=== PATIENT | female | born 1935 | race Caucasian/White ===

== ENCOUNTER 2016-12-08 17:23 | Emergency (ER) | payer OTHER ==
[~2016-12-08] VITALS: Ht 157.5 cm; Wt 51.9 kg
[2016-12-08 17:30] VITALS: TEMP 36.7; Ht 157.5 cm; Wt 51.9 kg
[2016-12-08] MEDS ORDERED: SODIUM CHLORIDE 0.9% 1000ML 1,000 ML IV STA (19:48)
[2016-12-08] MEDS ORDERED: OPTIRAY 320 IV PRN (20:00)
[2016-12-08 20:26] LABS: BASO % 0.3 %; BASO ABS # 0.02 K/uL (0-0.2); COMPLETE YES; EOS % 1.6 %; HEMATOCRIT 38.4 % (37-47); IG% 0.3 %; MEAN CELL VOLUME 89.7 fL (80-100); MEAN CORPUSCULAR HEMOGLOBIN 30.8 pg (25-34); MEAN CORPUSCULAR HGB CONC 34.4 g/dl (32-36); MEAN PLATELET VOLUME 10.1 fL (7.4-10.4); MONO % 10.6 %; NEUT % 71.2 %; PLATELET COUNT 382 K/uL (130-400); RED BLOOD COUNT 4.28 M/uL (4.2-5.4); WHITE BLOOD COUNT 6.86 K/uL (4.8-10.8)
[2016-12-08 20:48] LABS: BUN/CREATININE RATIO 19.3 (10-20); CALCIUM 9.7 mg/dl (8.5-10.1); CREATININE 0.85 mg/dl (0.60-1.20); POTASSIUM 3.8 mmol/L (3.5-5.1)
[2016-12-08 21:19] LABS: MANUAL MICROSCOPIC REQUIRED? YES; REVIEW REQ? NO; URINE COLOR AMBER
[2016-12-08 21:20] LABS: SULFASALICYLIC ACID POS (NEG); URINE APPEARANCE SLIGHTLY CLOUDY (CLEAR); URINE SPECIFIC GRAVITY 1.019 (1.000-1.030)
--- NOTE | 2016-12-08 21:21 | DIAGNOSTIC IMAGING REPORT ---
ABDOMINAL ULTRASOUND, RIGHT UPPER QUADRANT HISTORY: Painless jaundice. COMPARISON: None. FINDINGS: Liver morphology is normal. Moderate dilatation of the common bile duct is noted. The common bile duct measures 1 cm in caliber. The distal common bile duct is obscured. There is a large amount of sludge within the gallbladder. There is mild gallbladder wall thickening. No shadowing gallstones are identified. The pancreas is obscured by overlying bowel gas. There is no right hydronephrosis. IMPRESSION: 1. Mild to moderate dilatation of the common bile duct. No common bile duct calculi identified although distal common bile duct is obscured. 2. Obscured pancreas due to overlying bowel gas. 3. Large amount of sludge within the gallbladder with mild gallbladder wall thickening. Electronically signed by: Luis Paez M.D. 12/08/2016 9:19 PM Dictated Date/Time: 12/08/2016 9:17 PM
[2016-12-08 21:22] LABS: URINE BILIRUBIN POS (NEG)
[2016-12-08 21:24] LABS: URINE BACTERIA 1+ (NEG); URINE WBC >30 /hpf (0-5)
[2016-12-08 21:25] LABS: URINE MUCUS PRESENT (NONE PRSENT); ZZUR CULT IF INDIC CLEAN CATCH YES
--- NOTE | 2016-12-08 22:39 | DIAGNOSTIC IMAGING REPORT ---
CT OF THE ABDOMEN AND PELVIS WITH CONTRAST CLINICAL HISTORY: Painless jaundice. COMPARISON STUDY: Right upper quadrant ultrasound December 08, 2016. TECHNIQUE: Following IV administration of 116 mL of Optiray-320, axial images of the abdomen and pelvis were obtained from the lung bases to the proximal femurs. Images were reviewed in the axial, sagittal, and coronal planes. IV contrast was administered without complication. CT DOSE: 251.82 mGy.cm FINDINGS: Visualized portions of the lower chest demonstrate a large hiatal hernia with a largely intrathoracic stomach. There is moderate biliary and pancreatic ductal dilatation with abrupt cut off of the main pancreatic duct and the common bile duct within the pancreatic head due to a 3.1 x 1.8 cm hypodense mass within the pancreatic head and uncinate process. There is pancreatic glandular atrophy. The gallbladder is moderately distended. There is no pericholecystic infiltration. The main, left and right portal veins are patent. The tumor may contact the superior mesenteric vein. There are multiple hypodense hepatic lesions, the largest of which is a 1 cm segment 5 lesion. The adrenal glands, spleen and kidneys are normal. There is no evidence for a bowel obstruction. There is no abdominal or pelvic lymphadenopathy. No suspicious skeletal lesions are identified. There is a moderate amount of stool within the colon. The appendix is not visualized. There is no ascites. No peritoneal nodules are identified. IMPRESSION: 1. 3.1 x 1.8 cm pancreatic head and uncinate process mass with resultant moderate biliary and pancreatic ductal dilatation. This is consistent with a neoplasm and highly suggestive of pancreatic adenocarcinoma. A neuroendocrine tumor could appear similar but is less likely. 2. Multiple small hypodense hepatic lesions. These are indeterminate but worrisome for metastases. 3. Moderate gallbladder distention without pericholecystic infiltration. 4. Hiatal hernia with a largely intrathoracic stomach. 5. Moderate amount of stool within the colon. No bowel obstruction. Electronically signed by: Luis Paez M.D. 12/08/2016 10:38 PM Dictated Date/Time: 12/08/2016 10:26 PM
[2016-12-08 23:18] LABS: INR 1.1 (0.9-1.1); PARTIAL THROMBOPLASTIN RATIO 1.1; PROTHROMBIN TIME (PATIENT) 12.2 SECONDS (9.0-12.0)
[2016-12-08 23:50] VITALS: BP 155/102; PULSE 94; O2SAT 97
--- NOTE | 2016-12-09 00:52 | EMERGENCY ROOM VISIT NOTE ---
History Report prepared by Patria: Jasbir Adams Under the Supervision of: Dr. Sohail Brady M.D. First contact with patient: 19:47 Chief Complaint: OTHER COMPLAINT Stated Complaint: JAUNDICE, PT REFERRED BY MD History of Present Illness The patient is an 81 year old female who presents to the Emergency Room with complaints of sudden jaundice beginning several hours prior to arrival. As per daughter, the patient's 's home health nurse noticed the patient's coloring and referred her to the ED for evaluation. She notes today is the first time that she knew about the patient's jaundice. The patient associates dark urine with today's symptoms. The daughter notes the patient does not eat well. The patient denies a history of abdominal surgeries and medical problems. She does not have any other medical concerns at this time. Pt denies LOC, headache, fevers, chills, diaphoresis, visual changes, neck pain, chest pain, breathing difficulties, nausea, vomiting, abdominal pain, back pain, melena, hematochezia, urinary symptoms, numbness, weakness, lymphadenopathy, rash, or other complaints. Source of History: patient Onset: several hours [employer] Position: other (global) Quality: other (jaundice) Timing: other (sudden) Associated Symptoms: + urinary symptoms (dark urine) Review of Systems See HPI for pertinent positives and negatives. A total of ten systems were reviewed and were otherwise negative. Past Medical & Surgical Medical Problems: (1) Cataract Surgical Problems: (1) History of surgery on arm Family History Patient reports no known family medical history. Social History Smoking Status: Never Smoker Marital Status: Housing Status: lives with significant other Occupation Status: retired Allergies Coded Allergies: Codeine (Verified Allergy, Unknown, nausea, 12/08/16) Hydroxyzine (Verified Allergy, Unknown, Vistaril - Nausea, 12/08/16) Physical Exam Vital Signs Date Time Temp Pulse Resp B/P Pulse Ox O2 Delivery O2 Flow Rate FiO2 12/08/16 23:50 94 18 155/102 97 12/08/16 22:36 88 16 152/79 97 Room Air 12/08/16 21:28 88 20 137/86 98 Room Air 12/08/16 20:34 96 12/08/16 20:00 90 20 140/80 98 Room Air 12/08/16 17:30 36.7 126 18 143/83 93 Room Air Physical Exam GENERAL: Awake, alert, well-appearing, in no distress HENT: Normocephalic, atraumatic. Oropharynx unremarkable. EYES: Normal conjunctiva. Sclera are icteric. NECK: Supple. No nuchal rigidity. FROM. No JVD. RESPIRATORY: Clear to auscultation. CARDIAC: Borderline tachycardic rate, normal rhythm. Extremities warm and well perfused. Pulses equal. ABDOMEN: Soft, non-distended. No tenderness to palpation. No rebound or guarding. No masses. RECTAL: Deferred. MUSCULOSKELETAL: Chest examination reveals no tenderness. The back is symmetrical on inspection without obvious abnormality. There is no CVA tenderness to palpation. No joint edema. LOWER EXTREMITIES: Calves are equal size bilaterally and non-tender. No edema. No discoloration. NEURO: Normal sensorium. No sensory or motor deficits noted. SKIN: Jaundice noted. No rash. Medical Decision & Procedures ER Provider Diagnostic Interpretation: US results as stated below per my interpretation and radiologist interpretation. Other radiology results as stated below per my review and radiologist interpretation ABDOMINAL ULTRASOUND, RIGHT UPPER QUADRANT HISTORY: Painless jaundice. COMPARISON: None. FINDINGS: Liver morphology is normal. Moderate dilatation of the common bile duct is noted. The common bile duct measures 1 cm in caliber. The distal common bile duct is obscured. There is a large amount of sludge within the gallbladder. There is mild gallbladder wall thickening. No shadowing gallstones are identified. The pancreas is obscured by overlying bowel gas. There is no right hydronephrosis. IMPRESSION: 1. Mild to moderate dilatation of the common bile duct. No common bile duct calculi identified although distal common bile duct is obscured. 2. Obscured pancreas due to overlying bowel gas. 3. Large amount of sludge within the gallbladder with mild gallbladder wall thickening. Electronically signed by: Luis Paez M.D. 12/08/2016 9:[address] OF THE ABDOMEN AND PELVIS WITH CONTRAST CLINICAL HISTORY: Painless jaundice. COMPARISON STUDY: Right upper quadrant ultrasound December 08, 2016. TECHNIQUE: Following IV administration of 116 mL of Optiray-320, axial images of the abdomen and pelvis were obtained from the lung bases to the proximal femurs. Images were reviewed in the axial, sagittal, and coronal planes. IV contrast was administered without complication. CT DOSE: 251.82 mGy.cm FINDINGS: Visualized portions of the lower chest demonstrate a large hiatal hernia with a largely intrathoracic stomach. There is moderate biliary and pancreatic ductal dilatation with abrupt cut off of the main pancreatic duct and the common bile duct within the pancreatic head due to a 3.1 x 1.8 cm hypodense mass within the pancreatic head and uncinate process. There is pancreatic glandular atrophy. The gallbladder is moderately distended. There is no pericholecystic infiltration. The main, left and right portal veins are patent. The tumor may contact the superior mesenteric vein. There are multiple hypodense hepatic lesions, the largest of which is a 1 cm segment 5 lesion. The adrenal glands, spleen and kidneys are normal. There is no evidence for a bowel obstruction. There is no abdominal or pelvic lymphadenopathy. No suspicious skeletal lesions are identified. There is a moderate amount of stool within the colon. The appendix is not visualized. There is no ascites. No peritoneal nodules are identified. IMPRESSION: 1. 3.1 x 1.8 cm pancreatic head and uncinate process mass with resultant moderate biliary and pancreatic ductal dilatation. This is consistent with a neoplasm and highly suggestive of pancreatic adenocarcinoma. A neuroendocrine tumor could appear similar but is less likely. 2. Multiple small hypodense hepatic lesions. These are indeterminate but worrisome for metastases. 3. Moderate gallbladder distention without pericholecystic infiltration. 4. Hiatal hernia with a largely intrathoracic stomach. 5. Moderate amount of stool within the colon. No bowel obstruction. Electronically signed by: Luis Paez M.D. 12/08/2016 10:38 PM Laboratory Results 12/08/16 20:10 Red Blood Count 4.28, Mean Corpuscular Volume 89.7, Mean Corpuscular Hemoglobin 30.8, Mean Corpuscular Hemoglobin Concent 34.4, Mean Platelet Volume 10.1, Neutrophils (%) (Auto) 71.2, Lymphocytes (%) (Auto) 16.0, Monocytes (%) (Auto) 10.6, Eosinophils (%) (Auto) 1.6, Basophils (%) (Auto) 0.3, Neutrophils # (Auto ) 4.88, Lymphocytes # (Auto) 1.10, Monocytes # (Auto) 0.73, Eosinophils # (Auto ) 0.11, Basophils # (Auto) 0.02 12/08/16 20:10 Test 12/08/16 20:10 12/08/16 20:20 White Blood Count 6.86 K/uL (4.8-10.8) Red Blood Count 4.28 M/uL (4.2-5.4) Hemoglobin 13.2 g/dL (12.0-16.0) Hematocrit 38.4 % (37-47) Mean Corpuscular Volume 89.7 fL (80-100) Mean Corpuscular Hemoglobin 30.8 pg (25-34) Mean Corpuscular Hemoglobin Concent 34.4 g/dl (32-36) Platelet Count 382 K/uL (130-400) Mean Platelet Volume 10.1 fL (7.4-10.4) Neutrophils (%) (Auto) 71.2 % Lymphocytes (%) (Auto) 16.0 % Monocytes (%) (Auto) 10.6 % Eosinophils (%) (Auto) 1.6 % Basophils (%) (Auto) 0.3 % Neutrophils # (Auto) 4.88 K/uL (1.4-6.5) Lymphocytes # (Auto) 1.10 K/uL (1.2-3.4) Monocytes # (Auto) 0.73 K/uL (0.11-0.59) Eosinophils # (Auto) 0.11 K/uL (0-0.5) Basophils # (Auto) 0.02 K/uL (0-0.2) RDW Standard Deviation 52.7 fL (36.4-46.3) RDW Coefficient of Variation 16.0 % (11.5-14.5) Immature Granulocyte % (Auto) 0.3 % Immature Granulocyte # (Auto) 0.02 K/uL (0.00-0.02) Prothrombin Time 12.2 SECONDS (9.0-12.0) Prothromb Time International Ratio 1.1 (0.9-1.1) Activated Partial Thromboplast Time 29.2 SECONDS (21.0-31.0) Partial Thromboplastin Ratio 1.1 Anion Gap 8.0 mmol/L (3-11) Est Creatinine Clear Calc Drug Dose 41.1 ml/min Estimated GFR () 74.5 Estimated GFR (Non- 64.3 BUN/Creatinine Ratio 19.3 (10-20) Calcium Level 9.7 mg/dl (8.5-10.1) Total Bilirubin 18.2 mg/dl (0.2-1) Direct Bilirubin 14.6 mg/dl (0-0.2) Aspartate Amino Transf (AST/SGOT) 233 U/L (15-37) Alanine Aminotransferase (ALT/SGPT) 363 U/L (12-78) Alkaline Phosphatase 552 U/L (45-117) Total Protein 7.2 gm/dl (6.4-8.2) Albumin 3.8 gm/dl (3.4-5.0) Lipase 1135 U/L (73-393) Urine Color MAYURI Urine Appearance SLIGHTLY CLOUDY (CLEAR) Urine pH (4.5-7.5) Urine Specific Burton 1.019 (1.000-1.030) Urine Protein POS (NEG) Urine Glucose (UA) (NEG) Urine Ketones (NEG) Urine Occult Blood (NEG) Urine Nitrite (NEG) Urine Bilirubin POS (NEG) Urine Urobilinogen (NEG) Urine Leukocyte Esterase (NEG) Urine RBC 5-10 /hpf (0-4) Urine WBC >30 /hpf (0-5) Urine Epithelial Cells >30 /lpf (0-5) Urine Bacteria 1+ (NEG) Urine Mucus PRESENT (NONE PRSENT) Laboratory results reviewed by me Medications Administered Medications (Trade) Dose Ordered Sig/Lynn Route Start Time Stop Time Status Last Admin Dose Admin Sodium Chloride (Nss 1000ml) 1,000 ml @ 125 mls/hr Q8H STAT IV 12/08/16 19:48 12/09/16 03:47 12/08/16 20:29 125 MLS/HR ECG Indication: other (jaundice) Rate (beats per minute): 103 Rhythm: sinus tachycardia Findings: no acute ischemic change, no ectopy ED Course 1946: The patient was evaluated in room B2. A complete history and physical exam was performed. 1947: Ordered Sodium Chloride 1,000ml @ 125 mls/hr IV. 2214: Reevaluated and updated the patient at this time, and she is still asymptomatic. The patient is going to CT. 2253: I reevaluated the patient and reviewed all of the findings. I did consult with gastroenterology. Outpatient follow-up recommended. I did meet with the patient and reviewed all of the findings and necessary steps in the immediate future.I gave my usual and customary discussion regarding this issue. Medical Decision Triage Nursing notes reviewed. The patient's presentation and history were concerning for painless jaundice. Etiologies such as pancreatic tumor, biliary ductal obstruction, liver failure, metabolic, infection, electrolyte abnormalities, as well as others were entertained. The patient was evaluated. She was very jaundiced but had no significant findings on abdominal examination. She had no complaints of abdominal pain. She was afebrile. Her CBC was unremarkable. Urinalysis appeared to have mostly contaminant. infection and the patient has no urinary symptoms. the patient's lfts and lipase were markedly elevated. she underwent ultrasound and ct imaging. the constellation of findings is very concerning for a metastatic pancreatic tumor such as pancreatic adenocarcinoma. i did discuss this with the patient and family. i consulted with of gastroenterology. She recommended the patient to have endoscopic ultrasound as well as possible ERCP. As it is Sunday evening the services are not immediately available but she will coordinate things for Sunday. The patient feels comfortable with going home as does family. 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 The patient was given information to follow-up with gastroenterology. I spent a significant amount of time outlining all of the findings in follow-up directions. I also directed the patient come back to the emergency department for any worsening symptoms, especially fever, abdominal pain, or vomiting.I gave my usual and customary discussion regarding this issue. The chart was completed utilizing [employer] Speech voice recognition software. Grammatical errors, random word insertions, pronoun errors, and incomplete sentences are an occasional consequence of this system due to software limitations, ambient noise, and hardware issues. Any formal questions or concerns about the content, text, or information contained within the body of this dictation should be directly addressed to the physician for clarification. Impression Primary Impression: Pancreatic tumor Additional Impressions: Liver metastasis Bile duct obstruction Elevated LFTs Elevated lipase Jaundice Scribe Attestation The scribe's documentation has been prepared under my direction and personally reviewed by me in its entirety. I confirm that the note above accurately reflects all work, treatment, procedures, and medical decision making performed by me. Departure Information Dispostion Home / Self-Care Referrals Isaias Ho MD (PCP) Patient Instructions My [facility] Problem Qualifiers
[2016-12-11] MEDS ORDERED: LATA0.5S OP (13:36)
[2016-12-11] MEDS ORDERED: NAPR1TAB9 PO (13:36)
[2017-03-13] MEDS ORDERED: LVNIS60 SQ (13:07)
[2017-03-13] MEDS ORDERED: RST75 PO (13:07)
== END 2016-12-08 23:46 | disposition home or self-care (01) ==
LOC: C.EDB 17:26
DX: C25.9 Malignant neoplasm of pancreas, unspecified (principal); C78.7 Secondary malignant neoplasm of liver and intrahepatic bile duct; K83.1 Obstruction of bile duct; R94.5 Abnormal results of liver function studies; R74.8 Abnormal levels of other serum enzymes; R17 Unspecified jaundice; R00.0 Tachycardia, unspecified; H26.9 Unspecified cataract; K83.8 Other specified diseases of biliary tract

== ENCOUNTER 2016-12-12 10:18 | Day surgery (SDC) | payer OTHER ==
[2016-12-11 13:36] VITALS: BMI 23.0
[~2016-12-12] VITALS: Ht 160 cm; Wt 59.5 kg
[~2016-12-12 10:18] MED LIST: CIPROFLOXACIN 400MG / 200ML D5W IV SCH; LACTATED RINGER'S 1000ML 1,000 ML IV SCH; LATA0.5S OP; NAPR1TAB9 PO
[2016-12-12 10:49] VITALS: BP 153/102; PULSE 86; TEMP 36.7; O2SAT 97; Ht 160 cm; Wt 59.5 kg
[2016-12-12] MEDS ORDERED: LACTATED RINGER'S 1000ML 1,000 ML IV ONE (11:24)
--- NOTE | 2016-12-12 11:33 | Endo History and Physical ---
History & Physical Date of Service: December 12, 2016. Chief Complaint: Jaundice Referring Physician: History of Present Illness Patient seen in ER last weekend after presenting with obstructive jaundice. CT with a concerning lesion in the pancreatic head with possible liver masses. Symptoms include a vague epigastric pain and fullness. In addition she has noted a color change in her urine for the last 4 to 6 weeks. No difficulty or pain with swallowing. Past Surgical History Hx Cardiac Surgery: No Hx Abdominal Surgery: No Hx Post-Op Nausea and Vomiting: No Hx Cancer Surgery: No Hx Thoracic Surgery: No Hx Orthopedic: Yes (LEFT TSA) Hx Urinary Tract Surgery: No Social History Smoking Status: Never Smoker Hx Substance Use: No Hx Alcohol Use: No Allergies Coded Allergies: Codeine (Verified Adverse Reaction, Unknown, nausea, 12/11/16) Hydroxyzine (Verified Adverse Reaction, Unknown, Vistaril - Nausea, 12/11/16 ) Current Medications Reported Home Medications Medications Dose Route/Sig Max Daily Dose Days Date Category Xalatan 0.005% Oph Lashanda (Latanoprost) 0.005 % Lashanda 1 Drops OP HS 12/11/16 Reported Aleve (Naproxen) 220 Mg Tab 220 Mg PO UD PRN 12/11/16 Reported Vital Signs Weight (Kilograms): 59.55 Height (Feet): 5 Height (Inches): 3 Date Time Temp Pulse Resp B/P Pulse Ox O2 Delivery O2 Flow Rate FiO2 12/12/16 10:49 36.7 86 22 153/102 97 Room Air Physical Exam General Appearance: no apparent distress Respiratory/Chest: Auscultation: breath sounds normal Cardiovascular: Heart Auscultation: RRR Abdomen: Inspection & Palpation: soft Assessment and Plan Patient with imaging concerning for a pancreatic malignancy. She presents today for EUS staging and biliary decompression. We have discussed the risks which include bleeding, infection, perforation, pancreatitis, failed biliary cannulation and insufficient cellularity. Plan EUS ERCP
[2016-12-12] MEDS ORDERED: INDOMETHACIN 50 MG SUPP PR SCH (12:00)
[2016-12-12] MEDS ORDERED: MIDAZOLAM HCL 1 MG/ML 2ML VIAL ONE (12:16)
[2016-12-12] MEDS ORDERED: LIDOCAINE HCL 2% 2 ML VIAL (20MG/ML) ONE (12:16)
[2016-12-12] MEDS ORDERED: PROPOFOL IV EMULSION 10 MG/ML 20 ML VIAL IV ONE (12:16)
[2016-12-12] MEDS ORDERED: FENTANYL CITRATE INJ 50 MCG/1 ML 2 ML VIAL ONE (12:16)
[2016-12-12] MEDS ORDERED: SUCCINYLCHOLINE CHLORIDE 20 MG/ML 10 ML VIAL IV ONE (12:26)
[2016-12-12] MEDS ORDERED: LACTATED RINGER'S 1000ML 1,000 ML IV PRN (12:33)
[2016-12-12] MEDS ORDERED: ONDANSETRON INJ 2 MG/ML 2 ML VIAL IV PRN ×2 (12:45→14:00)
[2016-12-12] MEDS ORDERED: FENTANYL CITRATE INJ 50 MCG/1 ML 2 ML VIAL IV PRN (12:45)
[2016-12-12] MEDS ORDERED: PHENYLEPHRINE 100MCG/ML 5ML SYR ONE (13:03)
[2016-12-12] MEDS ORDERED: ONDANSETRON INJ 2 MG/ML 2 ML VIAL ONE (13:37)
[2016-12-12] MEDS ORDERED: DEXAMETHASONE SOD INJ 4 MG/ML VIAL ONE (13:37)
--- NOTE | 2016-12-12 13:54 | GI REPORT ---
Procedure Date: 12/12/2016 1:28 PM Procedure: ERCP Indications: Jaundice, Tumor of the head of pancreas Medicines: General Anesthesia, Indocin 100 mg DE Complications: No immediate complications. Estimated blood loss: Minimal. Estimated Blood Loss: Estimated blood loss: Minimal. Procedure: Pre-Anesthesia Assessment: - Prior to the procedure, a History and Physical was performed, and patient medications, allergies and sensitivities were reviewed. The patient's tolerance of previous anesthesia was reviewed. - The risks and benefits of the procedure and the sedation options and risks were discussed with the patient. All questions were answered and informed consent was obtained. - Patient identification and proposed procedure were verified prior to the procedure by the physician, the nurse and the retail mortgage banker. The procedure was verified in the procedure room. - Pre-procedure physical examination revealed no contraindications to sedation. - ASA Grade Assessment: III - A patient with severe systemic disease. - After reviewing the risks and benefits, the patient was deemed in satisfactory condition to undergo the procedure. - The anesthesia plan was to use general anesthesia. - Immediately prior to administration of medications, the patient was re-assessed for adequacy to receive sedatives. - The heart rate, respiratory rate, oxygen saturations, blood pressure, adequacy of pulmonary ventilation, and response to care were monitored throughout the procedure. - The physical status of the patient was re-assessed after the procedure. After obtaining informed consent, the scope was passed under direct vision. Throughout the procedure, the patient's blood pressure, pulse, and oxygen saturations were monitored continuously. The SCOPE was introduced through the mouth, and advanced to the duodenum and used to inject contrast into the bile duct. The ERCP was accomplished without difficulty. The patient tolerated the procedure well. Findings: The carousel attendant film was normal. The esophagus was successfully intubated under direct vision. The scope was advanced to a normal major papilla in the descending duodenum without detailed examination of the pharynx, larynx and associated structures, and upper GI tract. The upper GI tract was grossly normal. The bile duct was deeply cannulated with the short-nosed traction sphincterotome (Omni 35) and 0.035 in Acrobat guidewire. Contrast was injected. I personally interpreted the bile duct images. Contrast extended to the hepatic ducts. The middle third of the main bile duct and upper third of the main bile duct were diffusely dilated, secondary to a stricture within the intrapancreatic portiion of the CBD (15 mm in length). The largest diameter was 11mm. Biliary sphincterotomy was made with a monofilament short-tip traction sphincterotome using ERBE electrocautery. There was no post-sphincterotomy bleeding. The middle third of the main bile duct was successfully dilated with a 6 mm balloon dilator held inflated for 90 seconds (to facilitate passage of a stent). One 10 Fr by 8 cm biliary stent with a single external flap and a single internal flap was placed 8 cm into the common bile duct. Bile flowed through the stent. The stent was in good position. The endoscope was withdrawn from the patient. 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 - A sphincterotomy was performed. - The middle third of the main bile duct was successfully dilated to 6 mm. - One biliary stent was placed into the CBD Recommendation: - Avoid aspirin and nonsteroidal anti-inflammatory medicines for 1 week. - Clear liquid diet today. - Cipro (ciprofloxacin) 500 mg PO BID for 5 days. - Await cytology results from EUS. - Hepatic protocol CT - Surgical oncology referral - Medical oncology referral - If found to have metastatic disease / nonrecetable will transition to a metal stent. Star Berger D.O. Star Berger, 12/12/2016 1:54:43 PM This report has been signed electronically. Note Initiated On: 12/12/2016 1:28 PM I attest to the content of the Intraoperative Record and orders documented therein, exceptions below
--- NOTE | 2016-12-12 13:55 | [facility] Post Operative Brief Note ---
Immediate Operative Summary Operative Date December 12, 2016. Pre-Operative Diagnosis Common bile duct obstruction, pancreatic head mass. Post-Operative Diagnosis Same as preop. Procedure(s) Performed Endoscopic Retrograde Cholangiopancreatogram with biliary stent placement; Upper Endoscopic Ultrasonography with fine needle aspiration. Surgeon Dr. Berger Numerical Control Machine Tool Operator Surgeon(s) None Estimated Blood Loss 0 ml Findings 20 mm pancreatic head mass Dilated CBD FNA peformed of the pancreatic mass Biliary stent placed. Specimens FNA of the pancreatic head Anesthesia General Complication(s) None Disposition Recovery Room / PACU
--- NOTE | 2016-12-12 13:57 | Discharge Instructions ---
Endoscopy Patient Instructions Date / Procedure(s) Performed December 12, 2016. ERCP, Other (Endoscopic ultrasound) Allergy Information Coded Allergies: Codeine (Verified Adverse Reaction, Unknown, nausea, 12/11/16) Hydroxyzine (Verified Adverse Reaction, Unknown, Vistaril - Nausea, 12/11/16 ) Discharge Date / Findings December 12, 2016. Medication Instructions Restart Stopped Medication(s): Reported Home Medications Medications Dose Route/Sig Max Daily Dose Days Date Category Xalatan 0.005% Oph Lashanda (Latanoprost) 0.005 % Lashanda 1 Drops OP HS 12/11/16 Reported Aleve (Naproxen) 220 Mg Tab 220 Mg PO UD PRN 12/11/16 Reported No Nonsteroidals (aspirin or aleeve) for 1 weeks Cipro 500 mg twice daily for 5 days Provider Instructions Activity Restrictions - No exercising or heavy lifting for 24 hours. - Do not drink alcohol the day of the procedure. - Do not drive a car or operate machinery until the day after the procedure. - Do not make any important decisions or sign important papers in 24 hours after the procedure. Following Day: - Return to full activity which may include returning to work/school. Diet Clear liquid diet today Treatment For Common After Affects For mild abdominal pain, bloating, or excessive gas: - Rest - Eat lightly - Lie on right side Follow-Up Information CT of the liver to be scheduled Surgical oncology and medical oncology referral Cipro twice daily for 5 days Labs in 1 week. Anesthesia Information What You Should Know You have had a procedure that required some medicine to reduce anxiety and discomfort. This treatment is called moderate sedation. After receiving the treatment, you may be sleepy, but you will be able to breathe on your own. The effects of the treatment may last for several hours. Follow these instructions along with Activity/Diet recommendations noted above: * Do NOT do anything where dizziness or clumsiness would be dangerous. * Rest quietly at home today, then you can be up and about tomorrow. * Have a responsible person stay with you the rest of today. * You may have had an I.V. today. If so, you may take the dressing off later today. Recommendations Call your doctor if: * Trouble breathing * Continuous vomiting for more than 24 hours * Temperature above 101 degrees * Severe abdominal pain or bloating * Pain not relieved by pain medicine ordered * There is increased drainage or redness from any incision * A large amount of rectal bleeding greater than 2-3 tablespoons. (If you had a polyp/s removed or have hemorrhoids, a small amount of blood - from the rectum is to be expected.) * You have any unanswered questions or concerns. IN THE EVENT OF A SERIOUS EMERGENCY, GO TO THE NEAREST EMERGENCY ROOM Your discharge instructions were prepared by provider Star Berger. Patient Instructions Signature Page Eva Cordova Patient (or Guardian) Signature/Date: I have read and understand the instructions given to me by my caregivers. Caregiver/RN/Doctor Signature/Date: The above-named patient and/or guardian has received patient instructions on this date. + Original Patient Signature Page (only) stays with chart. Please make copy for patient.
--- NOTE | 2016-12-12 14:05 | DIAGNOSTIC IMAGING REPORT ---
ERCP BILIARY DUCTAL CLINICAL HISTORY: ERCP IN OR 12/12/16 COMPARISON STUDY: CT 12/08/2016 FLUOROSCOPY TIME: 2 minutes 15 seconds. FINDINGS: There is initial retrograde cannulation of the common duct. Contrast was administered demonstrating a long segment stenotic process of the distal common duct. Several air bubbles are present. This follow by successful stent placement traversing the stenotic lesion. IMPRESSION: Successful stent placement traversing a stenotic process of the mid to distal common bile duct Electronically signed by: Akira Johnson M.D. 12/12/2016 2:03 PM Dictated Date/Time: 12/12/2016 2:02 PM
--- NOTE | 2016-12-12 14:18 | Anesthesiology Progress Note ---
Anesthesia Post Op Note Date & Time December 12, 2016 at 14:18 Vital Signs Pain Intensity: 0 Vital Signs Past 12 Hours Date Time Temp Pulse Resp B/P Pulse Ox O2 Delivery O2 Flow Rate FiO2 12/12/16 14:05 69 18 152/75 100 Mask 5 12/12/16 13:55 36.9 74 16 155/93 100 Mask 10 12/12/16 10:49 36.7 86 22 153/102 97 Room Air Notes Mental Status: alert / awake / arousable, participated in evaluation Pt Amnestic to Procedure: Yes Nausea / Vomiting: adequately controlled Pain: adequately controlled Airway Patency, RR, SpO2: stable & adequate BP & HR: stable & adequate Hydration State: stable & adequate Anesthetic Complications: no major complications apparent Pt doing well. Just has a sore throat which is expected.
[2016-12-12 14:35] VITALS: BP 160/73; PULSE 67; TEMP 36.5; O2SAT 98
[2016-12-12 15:05] VITALS: BP 152/74; PULSE 72; TEMP 36.5; O2SAT 98
[2016-12-12 15:45] VITALS: BP 142/76; PULSE 69; TEMP 36.6; O2SAT 99
--- NOTE | 2016-12-12 15:52 | GI REPORT ---
Procedure Date: 12/12/2016 12:44 PM Procedure: Upper EUS Indications: Abnormal liver function test, Suspected solid pancreatic neoplasm Medicines: General Anesthesia, Cipro 400 mg IV Complications: No immediate complications. Estimated blood loss: Minimal. Estimated Blood Loss: Estimated blood loss was minimal. Procedure: Pre-Anesthesia Assessment: - Prior to the procedure, a History and Physical was performed, and patient medications, allergies and sensitivities were reviewed. The patient's tolerance of previous anesthesia was reviewed. - The risks and benefits of the procedure and the sedation options and risks were discussed with the patient. All questions were answered and informed consent was obtained. - Patient identification and proposed procedure were verified prior to the procedure by the physician, the nurse and the flooring machine operator. The procedure was verified in the procedure room. - Pre-procedure physical examination revealed no contraindications to sedation. - ASA Grade Assessment: III - A patient with severe systemic disease. - After reviewing the risks and benefits, the patient was deemed in satisfactory condition to undergo the procedure. - The anesthesia plan was to use general anesthesia. - Immediately prior to administration of medications, the patient was re-assessed for adequacy to receive sedatives. - The heart rate, respiratory rate, oxygen saturations, blood pressure, adequacy of pulmonary ventilation, and response to care were monitored throughout the procedure. - The physical status of the patient was re-assessed after the procedure. After obtaining informed consent, the endoscope was passed under direct vision. Throughout the procedure, the patient's blood pressure, pulse, and oxygen saturations were monitored continuously. The Endosonoscope was introduced through the mouth, and advanced to the second part of duodenum. The upper EUS was accomplished without difficulty. The patient tolerated the procedure well. Findings: Endosonographic Finding : Extensive hyperechoic material consistent with sludge was visualized endosonographically in the gallbladder. There was dilation in the common bile duct which measured up to 10 mm. There was no sign of significant endosonographic abnormality in the left lobe of the liver. Homogeneous parenchyma and no masses were identified. We were not able to view the right hepatic lobe. Pancreatic parenchymal abnormalities were noted in the pancreatic body and in the pancreatic tail. These consisted of atrophy and mild dilation of the duct in the body measuring 4.3 mm. An irregular mass was identified in the pancreatic head. The mass was hypoechoic. The mass measured 28 mm by 27 mm in maximal cross-sectional diameter. The endosonographic borders were poorly-defined. There was sonographic evidence suggesting invasion into the portal vein (manifested by abutment) and the superior mesenteric vein (manifested by interface loss less than 15 mm). An intact interface was seen between the mass and the celiac trunk suggesting a lack of invasion. The remainder of the pancreas was examined. The endosonographic appearance of parenchyma and the upstream pancreatic duct indicated duct dilation, a maximum duct diameter of 5 mm and parenchymal atrophy. Fine needle aspiration was performed. Color Doppler imaging was utilized prior to needle puncture to confirm a lack of significant vascular structures within the needle path. Four passes were made with the 22 gauge needle and with the 25 gauge needle using a transduodenal approach. A stylet was used. A timing machine operator was present and performed a preliminary cytologic examination. Final cytology results are pending. Estimated blood loss was minimal. No lymphadenopathy seen. Impression: - Hyperechoic material consistent with sludge was visualized endosonographically in the gallbladder. - There was dilation in the common bile duct which measured up to 10 mm. - There was no evidence of significant pathology in the left lobe of the liver. - Pancreatic parenchymal abnormalities consisting of atrophy were noted in the pancreatic body and in the pancreatic tail. - A 28 by 27 mm mass was identified in the pancreatic head. This was staged T3 N0 Mx by endosonographic criteria. The staging applies if malignancy is confirmed. Fine needle aspiration performed. Recommendation: - Perform an ERCP today. - Await cytology results. - Will arrange a hepatic CT for evaluation of the suspected masses. Star Berger D.O. Star Berger DO 12/12/2016 3:51:39 PM This report has been signed electronically. Note Initiated On: 12/12/2016 12:44 PM I attest to the content of the Intraoperative Record and orders documented therein, exceptions below
[2017-03-13] MEDS ORDERED: RST75 PO (13:07)
[2017-03-13] MEDS ORDERED: LVNIS60 SQ (13:07)
== END 2016-12-12 16:20 | disposition home or self-care (01) ==
LOC: C.ACU 10:18
PROVIDERS: ATTEND Internal Medicine Gastroenterology
DX: K83.1 Obstruction of bile duct (principal); K82.8 Other specified diseases of gallbladder; R17 Unspecified jaundice

== ENCOUNTER → 2016-12-19 | Outpatient (CLI) | payer OTHER ==
[~2016-12-19] MED LIST changes: -CIPROFLOXACIN 400MG / 200ML D5W IV SCH; +CPR500 PO; -LACTATED RINGER'S 1000ML 1,000 ML IV SCH; +LVNIS60 SQ; +MEGE40SU PO; +OPTIRAY 320 IV PRN; +RST75 PO; +SPIR50TA PO
--- NOTE | 2016-12-19 11:31 | DIAGNOSTIC IMAGING REPORT ---
CT OF THE ABDOMEN WITH AND WITHOUT CONTRAST CLINICAL HISTORY: Pancreatic cancer. Evaluate for liver metastases. TECHNIQUE: Unenhanced, arterial and venous phase imaging was performed. Injection of 118 cc Optiray 320 IV was uneventful. COMPARISON STUDY: CT of the abdomen and pelvis December 08, 2016. FINDINGS: The chest will be reported separately. There is been interval placement of a common bile duct stent. Biliary ductal dilatation has resolved. There is expected pneumobilia. There is gas within the gallbladder. There is trace pericholecystic fluid. Moderate pancreatic ductal dilatation is similar to prior CT. Note is again made of a hypodense mass within the pancreatic head and uncinate process that measures 3 x 1.6 cm. The spleen, adrenal glands and kidneys are normal. There is no hydronephrosis. There are numerous hepatic lesions, including a 1.3 cm segment 5 lesion. This lesion has increased in size since prior CT of December 08, 2016 when it measured 1 cm. Several these lesions are hypervascular. There is an indeterminate 2 cm hypervascular right hepatic lobe lesion. There is no abdominal lymphadenopathy. No suspicious skeletal lesions are identified. IMPRESSION: 1. Interval placement of a common bile duct stent with resolution of biliary ductal dilatation. Expected pneumobilia and gas within the gallbladder. Trace pericholecystic fluid. 2. Redemonstration of the 3 cm pancreatic head/uncinate process mass consistent with malignancy. 3. Numerous hepatic lesions which are highly suggestive of hepatic metastases. A 1.3 cm segment 5 lesion has mildly increased in size since prior CT. Electronically signed by: Luis Paez M.D. 12/19/2016 11:30 AM Dictated Date/Time: 12/19/2016 10:52 AM
--- NOTE | 2016-12-19 11:32 | DIAGNOSTIC IMAGING REPORT ---
CHEST CT WITH CONTRAST CT DOSE: 688.31 mGy.cm HISTORY: Pancreatic cancer. TECHNIQUE: Multiaxial CT images of the chest were performed following the intravenous administration of contrast. COMPARISON: Abdomen and pelvis CT 12/08/2016. FINDINGS: The central airways are patent. No pleural effusions. No pneumothorax. A few tiny nodular densities at the lung apices which are likely benign. There is a 2 mm nodule within the left upper lobe on image 128. A 3 mm nodule within the right upper lobe on image 1:15. Left shoulder prosthesis. No suspicious lytic or blastic osseous lesions. A 1 cm right thyroid nodule. No mediastinal or hilar lymphadenopathy. Normal caliber thoracic aorta. The central pulmonary arteries are patent. A large hiatus hernia is again noted. IMPRESSION: 1. No definite evidence for metastatic disease within the chest. A few scattered tiny nodules as described above are technically indeterminate but likely benign. Six-month chest CT follow-up can be performed to ensure stability. 2. Large hiatus hernia, unchanged. 3. Please refer to the dedicated abdominal CT performed the same day for further evaluation of the abdominal structures. Electronically signed by: Alvaro Medrano M.D. 12/19/2016 11:31 AM Dictated Date/Time: 12/19/2016 11:22 AM
== END | disposition home or self-care (01) ==
LOC: C.CTS 09:20
PROVIDERS: ATTEND Internal Medicine Gastroenterology
DX: C25.9 Malignant neoplasm of pancreas, unspecified (principal); K44.9 Diaphragmatic hernia without obstruction or gangrene

== ENCOUNTER → 2017-01-03 | Outpatient (CLI) | payer OTHER ==
[~2017-01-03] MED LIST changes: +GADOXETATE DISODIUM (NON-WT BASED PROCEDURE) IV PRN; -OPTIRAY 320 IV PRN
--- NOTE | 2017-01-03 18:43 | DIAGNOSTIC IMAGING REPORT ---
MRI OF THE ABDOMEN WITH AND WITHOUT CONTRAST LIVER PROTOCOL CLINICAL HISTORY: Pancreatic carcinoma. Evaluate for liver metastases. COMPARISON STUDY: CT of the abdomen December 19, 2016. TECHNIQUE: Utilizing a 1.5 Jeannie magnet and dedicated coil, multiplanar, multiecho imaging of the abdomen was performed pre and postcontrast administration. Post contrast imaging was performed utilizing dynamic enhancement following uneventful intravenous injection of 10 cc of Eovist. 20 minute delayed phase imaging was also performed. FINDINGS: The 2.8 x 1.7 cm hypointense pancreatic head mass is similar to prior exam. Moderate dilatation of the pancreatic duct is unchanged. There is no significant biliary ductal dilatation. A biliary stent may be in place but is suboptimally assessed by MRI. Numerous hypervascular hepatic lesions have increased in size since exam of December 19, 2016. These include a 4 cm right hepatic lobe lesion shown image 38 of 88 and a 2 x 1.9 cm segment 5 lesion shown on image 64. There are numerous additional smaller hepatic lesions. The spleen, adrenal glands and kidneys are unremarkable with exception of a small cyst within the upper pole the right kidney. There is no abdominal lymphadenopathy. No areas of suspicious marrow replacement are present. This exam is mildly compromised by motion artifact. A moderate sized hiatal hernia is noted. The main, left and right portal veins are patent. IMPRESSION: 1. Increase in size of numerous hypervascular hepatic lesions consistent with hepatic metastases. 2. No significant change in the known primary malignancy within the pancreatic head. 3. No change in pancreatic ductal dilatation. No significant biliary ductal dilatation with suspected biliary stent in place. Electronically signed by: Luis Paez M.D. 01/03/2017 6:42 PM Dictated Date/Time: 01/03/2017 6:29 PM
== END | disposition home or self-care (01) ==
LOC: C.MRI 15:54
PROVIDERS: ATTEND Internal Medicine Hematology
DX: C25.0 Malignant neoplasm of head of pancreas (principal); K76.89 Other specified diseases of liver

== ENCOUNTER 2017-03-01 15:04 | Inpatient (IN) | payer OTHER ==
[~2017-03-01] VITALS: Ht 157.5 cm; Wt 56.5 kg
[~2017-03-01 15:04] MED LIST changes: -CPR500 PO; -GADOXETATE DISODIUM (NON-WT BASED PROCEDURE) IV PRN; -LVNIS60 SQ; -MEGE40SU PO; -RST75 PO; -SPIR50TA PO
--- NOTE | 2017-03-01 16:06 | DIAGNOSTIC IMAGING REPORT ---
VENOUS DOPPLER LW EXT BILAT HISTORY: Pain. Edema. R LEG Pain/swelling, pancreatic CA COMPARISON STUDY: None. FINDINGS: Findings of extensive deep venous thrombosis involving the right leg. This involves the common femoral vein, femoral vein and its proximal to distal aspect, popliteal vein, as well as the bulk of the venous structures of the lower leg. Superficial thrombophlebitis within the greater saphenous and superficial femoral veins. Several varicosities are present again with thrombus. Left leg shows normal venous flow throughout. IMPRESSION: 1. Extensive acute deep venous thrombosis throughout the entire right leg including thigh and lower leg venous structures. 2. Superficial thrombophlebitis throughout the right leg. 3. Normal left leg. The above report was generated using voice recognition software. It may contain grammatical, syntax or spelling errors. Electronically signed by: Akira Johnson M.D. 03/01/2017 4:05 PM Dictated Date/Time: 03/01/2017 4:03 PM
[2017-03-01] MEDS ORDERED: POLYETHYLENE (MIRALAX) 17 GM PACK PO PRN (17:45)
[2017-03-01] MEDS ORDERED: ONDANSETRON INJ 2 MG/ML 2 ML VIAL IV PRN (17:45)
--- NOTE | 2017-03-01 17:45 | History and Physical ---
History & Physical Date & Time of Service: Mar 01, 2017 at 17:28 Chief Complaint: Do Bilat R Leg Pain/Swelling,Pancreatic Ca Primary Care Physician: Isaias Ho MD History of Present Illness This is an 81 yo F with PMHx of metastatic pancreatic cancer to the liver originally diagnosed 12/16/[address] Berger being treated with Gemzar x 3 cycles initiated the beginning of December 2016, elevated LFTS due to mets, remote hx of HTN but no longer has it, who presents as a direct admission from Dr. Salas 's office (heme/onc [facility]) for increased shortness of breath per the patients daughter and worsening right lower extremity swelling. Venous ultrasound confirmed an extensive DVT involving all venous structures in the right lower extremity, the left leg is without DVT. The patient and her daughter are present in the room. The patient reports initially noticing swelling in her right leg which started about 2 weeks ago. She denies any redness or pain associated with it. It progressed over the past weekend and her foot appeared more swollen this week. The patient's daughter reports that she noticed the pt appeared more short of breath last week, and that she was only able to ambulate ~ 10 feet before getting very winded. She has never had a clot before that she's aware of. Caregivers in the home also noticed her acutely being short of breath last weekend. The patient denies shortness of breath at rest. The patient also admits to multiple falls in the past month, most recently was yesterday. At that time she was ambulating without the walker, and tripped over a sweatshirt on the floor. She denies lightheadedness, dizziness, LOC or trauma sustained to the head. Her right elbow did get hit and she has an abrasion over it. The patient reports she was recently treated for a UTI with Cipro 500 mg BID x 10 day course started on , which finished yesterday. The patient reports a poor appetite and that she has not been eating very well with minimal fluid intake besides for coffee in the morning. She reports this has been going on for some time now, and prior to chemotherapy. Past Medical/Surgical History Medical Problems: (1) Cataract Status: Resolved Pancreatic cancer with metastasis to the liver Constipation Surgical Problems: (1) History of surgery on arm Status: Resolved Hx of R shoulder surgery 2014 Hx of R zygomatic/nasal bone fracture s/p fall Family History Patient reports no known family medical history. Social History Smoking Status: Never Smoker Smokeless Tobacco Use: No Alcohol Use: none Drug Use: none Marital Status: Housing status: lives with significant other Occupational Status: retired Allergies Coded Allergies: Codeine (Verified Adverse Reaction, Unknown, nausea, 12/11/16) Hydroxyzine (Verified Adverse Reaction, Unknown, Vistaril - Nausea, 12/11/16 ) Home Medications Scheduled Ciprofloxacin (Ciprofloxacin HCl), 500 MG PO BID Hctz/Spironolactone 25MG/25MG (Aldactazide 25MG/25MG), 1 TAB PO DAILY Latanoprost (Xalatan 0.005% Oph Lashanda), 1 DROPS OP HS Megestrol Acetate (Megace Oral), 40 MG PO QAM Scheduled PRN Naproxen (Aleve), 220 MG PO UD PRN for Pain Review of Systems Constitutional: No fever, No chills, No sweats, No fatigue Eyes: No redness, No diplopia ENT: No sore throat, No trouble swallowing Respiratory: + shortness of breath, + dyspnea on exertion, No cough, No sputum , No wheezing, No dyspnea at rest, No hemoptysis Cardiovascular: No chest pain, No palpitations Abdomen: + problem reported (poor appetite), No pain, No nausea, No diarrhea, No constipation, No GI bleeding Musculoskeletal: No joint pain Genitourinary - Female: No dysuria, No hematuria Neurologic: No memory loss, No numbness/tingling Psychiatric: No depression symptoms Endocrine: No fatigue Integumentary: No rash, No itch Physical Exam General Appearance: WD/WN, no apparent distress, + thin Head: normocephalic, atraumatic Eyes: PERRL, EOMI, + pertinent finding ENT: hearing grossly normal, pharynx normal Neck: supple, no JVD Respiratory/Chest: chest non-tender, lungs clear, no respiratory distress, no accessory muscle use, + pertinent finding (on room air) Cardiovascular: regular rate, rhythm, no murmur, normal peripheral pulses, + pertinent finding (+ few extra beats) Abdomen/GI: normal bowel sounds, non tender, soft Back: normal inspection Extremities/Musculoskelatal: no calf tenderness, + pertinent finding (2+ pitting edema BLE, worse on the right compared to the left, no erythema. + R elbow abraision.) Neurologic/Psych: alert, normal mood/affect, oriented x 3 Skin: normal color, warm/dry, + pertinent finding (no jaundice) Diagnostics Laboratory Results WBC = 13.91 RBC= 2.86 Hgb = 8.6 HCT= 25.8 MCV= 90.2 MCH= 30.1 MCHC= 33.3 RDW = 22.8 PLT= 539 MPV = 10.6 Neut= 67.0 Lymphs= 12.0 Monos= 14.0 Metas= 5.0 Meylos= 2.0 Abs. neuts= 9.32 abs. lymph= 1.67 abs monos= 1.95 abs metas= 0.70 abs melos= 0.28 anisocytosis= moderate elliptocytes= moderate acanthocytes= few reactive lymphs= few Diagnostic Radiology VENOUS DOPPLER LW EXT BILAT HISTORY: Pain. Edema. R LEG Pain/swelling, pancreatic CA COMPARISON STUDY: None. FINDINGS: Findings of extensive deep venous thrombosis involving the right leg. This involves the common femoral vein, femoral vein and its proximal to distal aspect, popliteal vein, as well as the bulk of the venous structures of the lower leg. Superficial thrombophlebitis within the greater saphenous and superficial femoral veins. Several varicosities are present again with thrombus. Left leg shows normal venous flow throughout. IMPRESSION: 1. Extensive acute deep venous thrombosis throughout the entire right leg including thigh and lower leg venous structures. 2. Superficial thrombophlebitis throughout the right leg. 3. Normal left leg. The above report was generated using voice recognition software. It may contain grammatical, syntax or spelling errors. Electronically signed by: Akira Johnson M.D. 03/01/2017 4:05 PM Dictated Date/Time: 03/01/2017 4:03 PM The status of this report is Signed. Impression Assessment and Plan This is an 81 yo F with PMHx of metastatic pancreatic cancer to the liver, chronically elevated LFTS, who presents as a direct admission from Dr. Salas's office (heme/onc [facility]) for increased shortness of breath per the patients daughter and worsening right lower extremity swelling. Venous ultrasound confirmed an extensive DVT involving all venous structures in the right lower extremity, the left leg is without DVT. Extensive RLE DVT and possible PE - Admit to tele for shortness of breath - Will start the patient on Lovenox 1 mg/kg Q12H per Dr. Salas's recommendations - Ultrasound of the LE reviewed showing extensive dvt throughout the venous structures of the right leg throughout all deep veins and superficial veins - Pt was recently started on Aldactazide 25/25 QD one week ago for swelling - hold for now. - No need for CTPE as the tx is the same - VSS with O2 sats at 96% on RA - Troponin x 1 set ordered Metastatic pancreatic carcinoma - Liver metastasis - Currently receiving outpatient chemotherapy with Gemzar x 3 cycles - [facility] consulted per Dr. Salas, pt typically follows with Dr. Izquierdo as an outpatient - Follow am CBC. Per report, WBC of 13 is lower than previously - Follow LFTs CINTIA - Cr. elevated at 1.5, baseline of 0.9, follow CMP - Likely secondary to new initiation of diuretic last week- holding aldactazide - Pt finished a 10 day course of Cipro 500 mg BID yesterday, was initiate on 02/16 for UTI - Will start maintenance fluids at 75mL/hr x 1 day and encourage oral intake. S/p Falls - Pt reports multiple falls in the past month, most recently was yesterday - PT/OT evals - Ambulates with walker at baseline, fall precautions Insomnia - Pt has used temazepam 15 mg QHS in the past, but reports she has not used this in a long time. She is requesting something for sleep so will order temazepam 7.5 mg QHS prn for now. DVT ppx: therapeutic lovenox 1mg/kg CODE STATUS: DNR Disposition: From home, lives with , has caregivers available 05/03 including daughter, discharge when medically stable. Level of Care Telemetry VTE Prophylaxis VTE Risk Assessment Done? Y/N: Yes Risk Level: Low Given or contraindicated: Enoxaparin (Lovenox)SQ, T.E.D. Stockings, SCD's Social Service Consult Cancer Patient Under TX Reviewed: Pt Seen/Exam by Me History Physician Technical Sales Consultant Supervision Note: I interviewed and examined the patient. Discussed with BHAVANA Purvis and agree with findings and plan as documented in the note. Any exceptions or clarifications are listed here: Pt hd some SOB recently in addition to her RLE swelling. Admitted directly from Oncology office for acute DVT and SOB. Quality Control Checker elevated so will not do CTA Chest and I do not suspect large PE as is hemodynamically stable. If telegraphic typewriter mechanic improves in the AM, could consider doing CTA CHest then. -check ECG now to look for right heart strain -trend creatinine and hydrate with IVFs -stop diuretic -Lovenox full dose and will dc on this given underlying malignancy -holding chemo and consult her primary Oncologist Dispo- to home in 1-2 days Documented By: Alessandra Nolen
[2017-03-01 18:00] VITALS: BP 114/70; PULSE 88; TEMP 36.3; O2SAT 96; Ht 157.5 cm; Wt 56.5 kg
[2017-03-01] MEDS ORDERED: ENOXAPARIN 1 MG/KG SQ SCH (18:30)
[2017-03-01] MEDS ORDERED: ENOXAPARIN 60 MG/0.6 ML SYR SQ STA (18:51)
[2017-03-01] MEDS ORDERED: MEGE40SU PO (19:14)
[2017-03-01] MEDS ORDERED: SPIR50TA PO (19:14)
[2017-03-01] MEDS ORDERED: CPR500 PO (19:14)
[2017-03-01 19:58] VITALS: BP 113/46; PULSE 102; TEMP 36.8; O2SAT 99
[2017-03-01] MEDS: SODIUM CHLORIDE 0.9% 1000ML 1,000 ML IV SCH (20:06)
[2017-03-01 20:08] LABS: HEMATOCRIT 26.9 % (37-47); MEAN CELL VOLUME 88.2 fL (80-100); MEAN CORPUSCULAR HEMOGLOBIN 28.2 pg (25-34); MEAN PLATELET VOLUME 9.8 fL (7.4-10.4); PLATELET COUNT 541 K/uL (130-400); RED BLOOD COUNT 3.05 M/uL (4.2-5.4); WHITE BLOOD COUNT 15.46 K/uL (4.8-10.8)
[2017-03-01 20:21] LABS: INR 1.3 (0.9-1.1); PARTIAL THROMBOPLASTIN RATIO 1.3; PROTHROMBIN TIME (PATIENT) 14.6 SECONDS (9.0-12.0)
[2017-03-01 20:29] LABS: BUN/CREATININE RATIO 17.3 (10-20); CALCIUM 8.5 mg/dl (8.5-10.1); CREATININE 1.8 mg/dl (0.60-1.20); POTASSIUM 3.6 mmol/L (3.5-5.1)
[2017-03-01 20:32] LABS: ALB/GLOB RATIO 0.8 (0.9-2)
[2017-03-01 21:17] LABS: ANISOCYTOSIS PRESENT; COMPLETE YES; ECHINOCYTES 2+; LYMPH ABS # 1.48 K/uL (1.2-3.4); LYMPHOCYTE % 9.6 %; META ABS # 1.21 K/uL (0-0); METAMYELOCYTE % 7.8 %; MYELOCYTE % 0.9 %; NEUTROPHILS % 62.6 %; OVALOCYTES 1+
[2017-03-01] MEDS: TEMAZEPAM 7.5 MG CAP PO PRN (23:33)
[2017-03-01 23:36] VITALS: BP 96/67; PULSE 93; TEMP 36.9; O2SAT 97
[2017-03-02] VITALS (9 sets, daily range): BP systolic 99–132; BP diastolic 58–76; PULSE 93–121; TEMP 36.4–37.3; O2SAT 94–100
[2017-03-02 07:15] LABS: HEMATOCRIT 21.2 % (37-47); MEAN CELL VOLUME 89.5 fL (80-100); MEAN CORPUSCULAR HEMOGLOBIN 30.4 pg (25-34); MEAN PLATELET VOLUME 10.4 fL (7.4-10.4); PLATELET COUNT 457 K/uL (130-400); RED BLOOD COUNT 2.37 M/uL (4.2-5.4); WHITE BLOOD COUNT 12.12 K/uL (4.8-10.8)
[2017-03-02 07:51] LABS: BUN/CREATININE RATIO 18.9 (10-20); CALCIUM 7.6 mg/dl (8.5-10.1); CREATININE 1.5 mg/dl (0.60-1.20); POTASSIUM 3.4 mmol/L (3.5-5.1)
[2017-03-02] MEDS: SODIUM CHLORIDE 0.9% 1000ML 1,000 ML IV SCH ×2 (08:08→21:55)
[2017-03-02 08:11] LABS: ANISOCYTOSIS PRESENT; COMPLETE YES; ECHINOCYTES 2+; LYMPH ABS # 1.27 K/uL (1.2-3.4); LYMPHOCYTE % 10.5 %; META ABS # 0.22 K/uL (0-0); METAMYELOCYTE % 1.8 %; MYELOCYTE % 7.9 %; NEUTROPHILS % 67.5 %; OVALOCYTES 2+
--- NOTE | 2017-03-02 09:41 | Clinical Documentation Query ---
CLINICAL DOCUMENTATION QUERY 81-y/o female with pancreatic cancer who presents with increased shortness of breath per the patients daughter and worsening right lower extremity swelling. In your clinical opinion is this patient being managed for: ( ) Cancer induced hypercoagulable state causing DVT's and possible PE treated with Lovenox and Oncology/hematology consult. ( ) Other explanation of clinical findings (Please Explain) ( ) Unable to determine (Please Define) ( ) Need to Discuss ( ) Not Agree The medical record reflects the following clinical findings, treatment, and risk factors. Clinical Indicators: H&P states possible PE and extensive RLE DVT. Treatment: Lovenox, Oncology consult, Risk Factors: Age, Cancer Please clarify and document your clinical opinion in the progress notes and discharge summary. Terms such as "probable", "suspected", "likely", "questionable", "possible", or "still to be ruled out" are acceptable. IF IN AGREEMENT, YOU MUST DOCUMENT ABOVE DIAGNOSTIC STATEMENT IN DAILY PROGRESS NOTES AND DISCHARGE SUMMARY. This document is not part of the patient's record. Thank You, Jose Luis Brock, RN [phone]
--- NOTE | 2017-03-02 16:25 | Palliative Care Consultation ---
Consultation Date of Consultation: Mar 02, 2017. Requesting Physician: Dr. Rivas Attending Physician: Dr. Rivas Reason for Consultation: Goals of care, supportive care History of Present Illness This 81 year old female patient with PMH of metastatic pancreatic cancer to the liver originally diagnosed 12/16/[address] Berger being treated with Gemzar x 3 cycles initiated the beginning of December 2016, elevated LFTS due to mets , remote hx of HTN but no longer has it, who presented yesterday evening as a direct admission from oncologist's office for increased shortness of breath and worsening right lower extremity swelling. Venous ultrasound confirmed an extensive DVT in the right lower extremity, the left leg is without DVT. On Lovenox injections. Also with CINTIA, creatinine of 1.5, baseline <1, hgb 7.2 today. Oncology is consulted. Palliative consulted as well. I met with patient in room 235. She is awake, alert and mostly oriented, but definitely forgetful and a poor historian. She has little knowledge about her cancer, she was unaware of the metastatic disease. I was hoping daughter would be present for consult, but she had just left. Patient says that she has no pain whatsoever. Only has some abdominal cramping at times after her chemo treatments. Her biggest concern was about living with her who has dementia. They have caregivers who come into the home, someone is with them . When I asked about the cancer treatments, patient said, "I don't know how much longer I can do this." Being that I have very limited history and information about this patient's condition, I encouraged her to have a conversation with the oncologist when they come to do consult. I will continue the goals of care conversation on Sunday if patient is still here and I certainly would want the patient's daughter to be present. Patient does have living will completed. She confirmed she is a DNR. Would never want heroic measures to keep her alive including ventilator or feeding tube. Past Medical/Surgical History Medical History: as above Social History Smoking Status: Never Smoker History of Alcohol Use: No Drug Use: none Marital Status: Housing Status: lives with significant other Occupation Status: retired Review of Systems Constitutional: + weight loss (unsure of how much), + weakness (mild at baseline) Respiratory: + dyspnea on exertion, No shortness of breath (resolved) Cardiac: + edema (right leg), No chest pain Abdomen: + problem reported (poor appetite), No pain, No nausea, No vomiting Psychiatric: No anxiety Heme: + see HPI Allergies Coded Allergies: Codeine (Verified Adverse Reaction, Unknown, nausea, 12/11/16) Hydroxyzine (Verified Adverse Reaction, Unknown, Vistaril - Nausea, 12/11/16 ) Medications Current Inpatient Medications Medications (Trade) Dose Ordered Sig/Lynn Route Start Time Stop Time Status Last Admin Dose Admin Acetaminophen (Tylenol Tab) 650 mg Q4H PRN PO 03/01/17 17:45 03/31/17 17:44 Ondansetron HCl (Zofran Inj) 4 mg Q6H PRN IV 03/01/17 17:45 03/31/17 17:44 Polyethylene (Miralax Powder Packet) 17 gm DAILY PRN PO 03/01/17 17:45 03/31/17 17:44 Sodium Chloride 1,000 ml @ 75 mls/hr [id number] IV 03/01/17 19:15 03/31/17 19:14 03/02/17 08:08 75 MLS/HR Temazepam (Restoril Cap) 7.5 mg HS PRN PO 03/01/17 19:45 03/31/17 19:44 03/01/17 23:33 7.5 MG Enoxaparin Sodium (Lovenox Inj) 50 mg DAILY@2000 SQ 03/02/17 20:00 04/01/17 19:59 Physical Exam Date Time Temp Pulse Resp B/P (MAP) Pulse Ox O2 Delivery O2 Flow Rate FiO2 03/02/17 15:33 36.8 109 16 103/71 (82) 96 Room Air 03/02/17 12:00 Room Air 03/02/17 11:57 36.4 101 19 99/58 (72) 99 Room Air 03/02/17 10:15 101 99 03/02/17 08:00 Room Air 03/02/17 07:08 36.9 102 18 104/72 (83) 98 Room Air 03/02/17 04:15 101 03/02/17 04:04 37.0 121 22 114/76 (89) 94 Room Air 03/02/17 04:00 Room Air 03/01/17 23:59 Room Air 03/01/17 23:36 36.9 93 22 96/67 (77) 97 Room Air 03/01/17 20:00 Room Air 03/01/17 19:58 36.8 102 22 113/46 (68) 99 Room Air 03/01/17 18:00 36.3 88 20 114/70 96 Room Air General Appearance: no apparent distress, + thin ENT: hearing grossly normal Neck: supple, no JVD Respiratory: lungs clear, no respiratory distress, no accessory muscle use Cardiovascular: regular rate, rhythm, + pertinent finding (rght leg with +2 edema) Abdomen: normal bowel sounds, non tender, soft Neurologic/Psychiatric: alert, normal mood/affect, oriented x 3 (forgetful) Laboratory Results Last 24 Hours Test 03/01/17 19:40 03/01/17 20:01 03/02/17 06:32 Prothrombin Time 14.6 SECONDS Prothromb Time International Ratio 1.3 Activated Partial Thromboplast Time 32.9 SECONDS Partial Thromboplastin Ratio 1.3 White Blood Count 15.46 K/uL 12.12 K/uL Red Blood Count 3.05 M/uL 2.37 M/uL Hemoglobin 8.6 g/dL 7.2 g/dL Hematocrit 26.9 % 21.2 % Mean Corpuscular Volume 88.2 fL 89.5 fL Mean Corpuscular Hemoglobin 28.2 pg 30.4 pg Mean Corpuscular Hemoglobin Concent 32.0 g/dl 34.0 g/dl Platelet Count 541 K/uL 457 K/uL Mean Platelet Volume 9.8 fL 10.4 fL RDW Standard Deviation 64.0 fL 65.6 fL RDW Coefficient of Variation 22.9 % 23.1 % Nucleated RBC Absolute Count (auto) 0.06 K/uL Neutrophils % (Manual) 62.6 % 67.5 % Lymphocytes % (Manual) 9.6 % 10.5 % Monocytes % (Manual) 19.1 % 12.3 % Metamyelocytes % 7.8 % 1.8 % Myelocytes % 0.9 % 7.9 % Nucleated Red Blood Cells % 0.4 % Neutrophils # (Manual) 9.68 K/uL 8.18 K/uL Total Absolute Neutrophils 9.68 K/uL 8.18 K/uL Lymphocytes # (Manual) 1.48 K/uL 1.27 K/uL Total Absolute Lymphocytes 1.48 K/uL 1.27 K/uL Monocytes # (Manual) 2.95 K/uL 1.49 K/uL Metamyelocytes # 1.21 K/uL 0.22 K/uL Myelocytes # 0.14 K/uL 0.96 K/uL Anisocytosis PRESENT PRESENT Ovalocytes 1+ 2+ Echinocytes 2+ 2+ Sodium Level 139 mmol/L 139 mmol/L Potassium Level 3.6 mmol/L 3.4 mmol/L Chloride Level 104 mmol/L 108 mmol/L Carbon Dioxide Level 23 mmol/L 22 mmol/L Anion Gap 12.0 mmol/L 9.0 mmol/L Blood Urea Nitrogen 31 mg/dl 28 mg/dl Creatinine 1.80 mg/dl 1.50 mg/dl Est Creatinine Clear Calc Drug Dose 19.4 ml/min 23.3 ml/min Estimated GFR () 30.1 37.5 Estimated GFR (Non- 25.9 32.3 BUN/Creatinine Ratio 17.3 18.9 Random Glucose 186 mg/dl 126 mg/dl Calcium Level 8.5 mg/dl 7.6 mg/dl Total Bilirubin 1.6 mg/dl 1.1 mg/dl Aspartate Amino Transf (AST/SGOT) 41 U/L 32 U/L Alanine Aminotransferase (ALT/SGPT) 46 U/L 35 U/L Alkaline Phosphatase 315 U/L 255 U/L Total Protein 6.3 gm/dl 5.0 gm/dl Albumin 2.7 gm/dl 2.0 gm/dl Globulin 3.6 gm/dl Albumin/Globulin Ratio 0.8 Direct Bilirubin 0.7 mg/dl Assessment & Plan Palliative Performance Scale: 60 % Problem list: SOB- resolved Weakness Poor appetite Patient-reported weight loss- unsure of how much Pancreatic cancer- mets to liver DVT- RLE CINTIA- improving Hypoalbuminemia- 2.0 Anemia Goals of care (Z51.5) Palliative care recommendations: -Patient confirmed she is DNR. -She states she is unsure of continuing her chemo treatments because she doesn' t "know what good they're doing." However, she is not knowledgeable about her disease and seems forgetful, forgot several things we talked about just five minutes ago. I would not want this decision to be made by the patient without the support of her oncologist and her family. She says she tolerates the chemo "alright, most of the time." -It is important to the patient that she remains comfortable, pain free, and as asymptomatic throughout this process as possible. So far, she says she's "been aaron." However, she feels like she is getting somewhat tired. -At this time, patient's goal is to get back home with caregivers. Daughter provides a lot of care and support to the patient and . I will follow up on Sunday if patient is still here and perhaps have a better understanding of patient's overall condition and situation. Thank you for this consult.
[2017-03-02 17:40] LABS: MEAN CELL VOLUME 88.5 fL (80-100); MEAN CORPUSCULAR HEMOGLOBIN 29.5 pg (25-34); MEAN CORPUSCULAR HGB CONC 33.3 g/dl (32-36); MEAN PLATELET VOLUME 10.3 fL (7.4-10.4); PLATELET COUNT 542 K/uL (130-400); RED BLOOD COUNT 3.05 M/uL (4.2-5.4); WHITE BLOOD COUNT 17.74 K/uL (4.8-10.8)
[2017-03-02] MEDS ORDERED: ENOXAPARIN 60 MG/0.6 ML SYR SQ SCH (20:00)
--- NOTE | 2017-03-02 20:24 | Medical Consult ---
Consultation Date of Consultation: Mar 02, 2017. Attending Physician: Alessandra Nolen MD Reason for Consultation: Pancreatic cancer, RLE DVT History of Present Illness 81 year old female with metastatic pancreatic cancer on gemcitabine single agent chemotherapy with 25% dose reduction - days 1, 8 every 21 days. She was due to start new cycle yesterday but treatment was held. She had edema of her legs, worse on right lower extremity and was sent for venous doppler which showed extensive DVT. She also had elevated creatinine on outpatient labs up to 1.5 (baseline 0.7 to 0.9). On admission here creatinine was up to 1.8. She was started on Lovenox. Her daughter also had noted some dyspnea on exertion. She was directly admitted. Creatinine is still elevated but down to 1.5 today. She denies any fevers or chills No cough No bleeding symptoms Appetite is decreased Past Medical/Surgical History pancreatic cancer, RLE DVT, CINTIA, Anemia MEDICATIONS: Reviewed lovenox, restoril prn IVFs, zofran prn miralax prn tylenol prn Family History Patient reports no known family medical history. Social History Smoking Status: Never Smoker Smokeless Tobacco Use: No Alcohol Use: none Drug Use: none Marital Status: Housing Status: lives with significant other Occupation Status: retired Allergies Coded Allergies: Codeine (Verified Adverse Reaction, Unknown, nausea, 12/11/16) Hydroxyzine (Verified Adverse Reaction, Unknown, Vistaril - Nausea, 12/11/16 ) Current Inpatient Medications Current Inpatient Medications Medications (Trade) Dose Ordered Sig/Lynn Route Start Time Stop Time Status Last Admin Dose Admin Acetaminophen (Tylenol Tab) 650 mg Q4H PRN PO 03/01/17 17:45 03/31/17 17:44 Ondansetron HCl (Zofran Inj) 4 mg Q6H PRN IV 03/01/17 17:45 03/31/17 17:44 Polyethylene (Miralax Powder Packet) 17 gm DAILY PRN PO 03/01/17 17:45 03/31/17 17:44 Sodium Chloride 1,000 ml @ 75 mls/hr [id number] IV 03/01/17 19:15 03/31/17 19:14 03/02/17 08:08 75 MLS/HR Temazepam (Restoril Cap) 7.5 mg HS PRN PO 03/01/17 19:45 03/31/17 19:44 03/01/17 23:33 7.5 MG Enoxaparin Sodium (Lovenox Inj) 50 mg DAILY@2000 SQ 03/02/17 20:00 04/01/17 19:59 03/02/17 19:27 50 MG Review of Systems Constitutional: + fatigue, No fever, No chills Eyes: No eye pain, No redness ENT: No unusual epistaxis, No nasal symptoms, No sore throat Respiratory: + dyspnea on exertion, No cough, No sputum, No wheezing, No hemoptysis Cardiovascular: + edema (RLE), No chest pain Abdomen: + pain (states occasional since diagnosed with pancreatic cancer but no pain at present), No nausea, No vomiting, No diarrhea, No constipation, No GI bleeding Musculoskeletal: + swelling (RLE), No joint pain, No muscle pain Genitourinary - Female: No dysuria, No urinary frequency, No hematuria Endocrine: + fatigue Integumentary: No rash, No itch Physical Exam Date Time Temp Pulse Resp B/P (MAP) Pulse Ox O2 Delivery O2 Flow Rate FiO2 03/02/17 16:00 Room Air 03/02/17 15:33 36.8 109 16 103/71 (82) 96 Room Air 03/02/17 12:00 Room Air 03/02/17 11:57 36.4 101 19 99/58 (72) 99 Room Air 03/02/17 10:15 101 99 03/02/17 08:00 Room Air 03/02/17 07:08 36.9 102 18 104/72 (83) 98 Room Air 03/02/17 04:15 101 03/02/17 04:04 37.0 121 22 114/76 (89) 94 Room Air 03/02/17 04:00 Room Air 03/01/17 23:59 Room Air 03/01/17 23:36 36.9 93 22 96/67 (77) 97 Room Air 03/01/17 20:00 Room Air 03/01/17 19:58 36.8 102 22 113/46 (68) 99 Room Air General Appearance: no apparent distress, + pertinent finding (chronically ill appearing female) Head: normocephalic, atraumatic Eyes: sclerae normal ENT: pharynx normal Neck: supple, no adenopathy, no JVD Respiratory/Chest: chest non-tender, lungs clear, normal breath sounds, no respiratory distress Cardiovascular: regular rate, rhythm Abdomen/GI: normal bowel sounds, non tender, soft Extremities/Musculoskelatal: + pedal edema (2+ RLE) Neurologic/Psych: alert, oriented x 3 Skin: warm/dry, no rash Laboratory Results Last 24 Hours Test 03/01/17 20:01 03/02/17 06:32 03/02/17 17:29 White Blood Count 15.46 K/uL 12.12 K/uL 17.74 K/uL Red Blood Count 3.05 M/uL 2.37 M/uL 3.05 M/uL Hemoglobin 8.6 g/dL 7.2 g/dL 9.0 g/dL Hematocrit 26.9 % 21.2 % 27.0 % Mean Corpuscular Volume 88.2 fL 89.5 fL 88.5 fL Mean Corpuscular Hemoglobin 28.2 pg 30.4 pg 29.5 pg Mean Corpuscular Hemoglobin Concent 32.0 g/dl 34.0 g/dl 33.3 g/dl Platelet Count 541 K/uL 457 K/uL 542 K/uL Mean Platelet Volume 9.8 fL 10.4 fL 10.3 fL RDW Standard Deviation 64.0 fL 65.6 fL 65.4 fL RDW Coefficient of Variation 22.9 % 23.1 % 23.3 % Nucleated RBC Absolute Count (auto) 0.06 K/uL 0.06 K/uL Neutrophils % (Manual) 62.6 % 67.5 % Lymphocytes % (Manual) 9.6 % 10.5 % Monocytes % (Manual) 19.1 % 12.3 % Metamyelocytes % 7.8 % 1.8 % Myelocytes % 0.9 % 7.9 % Nucleated Red Blood Cells % 0.4 % 0.3 % Neutrophils # (Manual) 9.68 K/uL 8.18 K/uL Total Absolute Neutrophils 9.68 K/uL 8.18 K/uL Lymphocytes # (Manual) 1.48 K/uL 1.27 K/uL Total Absolute Lymphocytes 1.48 K/uL 1.27 K/uL Monocytes # (Manual) 2.95 K/uL 1.49 K/uL Metamyelocytes # 1.21 K/uL 0.22 K/uL Myelocytes # 0.14 K/uL 0.96 K/uL Anisocytosis PRESENT PRESENT Ovalocytes 1+ 2+ Echinocytes 2+ 2+ Sodium Level 139 mmol/L 139 mmol/L Potassium Level 3.6 mmol/L 3.4 mmol/L Chloride Level 104 mmol/L 108 mmol/L Carbon Dioxide Level 23 mmol/L 22 mmol/L Anion Gap 12.0 mmol/L 9.0 mmol/L Blood Urea Nitrogen 31 mg/dl 28 mg/dl Creatinine 1.80 mg/dl 1.50 mg/dl Est Creatinine Clear Calc Drug Dose 19.4 ml/min 23.3 ml/min Estimated GFR () 30.1 37.5 Estimated GFR (Non- 25.9 32.3 BUN/Creatinine Ratio 17.3 18.9 Random Glucose 186 mg/dl 126 mg/dl Calcium Level 8.5 mg/dl 7.6 mg/dl Total Bilirubin 1.6 mg/dl 1.1 mg/dl Aspartate Amino Transf (AST/SGOT) 41 U/L 32 U/L Alanine Aminotransferase (ALT/SGPT) 46 U/L 35 U/L Alkaline Phosphatase 315 U/L 255 U/L Total Protein 6.3 gm/dl 5.0 gm/dl Albumin 2.7 gm/dl 2.0 gm/dl Globulin 3.6 gm/dl Albumin/Globulin Ratio 0.8 Direct Bilirubin 0.7 mg/dl Assessment & Plan 81 year old female with metastatic pancreatic cancer admitted with extensive DVT of RLE and CINTIA Continue Lovenox. Recommend pharmacy consult [facility]: Recommend check CXR and V/Q scan Overall intermediate manager prognosis for her metastatic pancreatic cancer is poor and measured in weeks to months given her declining performance status and poor oral intake, currently ECOG PS 3. Patient verbalized understanding that her cancer is incurable and she appeared to understand that goal of her chemotherapy was palliative. We held her treatment due to her symptoms yesterday , and she agreed with that but she is undecided about whether she would want to consider any further chemotherapy or palliative care with option of hospice. I will hold off on a restaging CT scan/MRI right now due to her abnormal creatinine, She denies any pain at this time and states that has not been having any pain since being in hospital. Recommend nutrition consult for supplements If her performance status and oral intake/renal function does not improve, palliative care with option of home hospice would be reasonable. At this time, she would like to follow up with Dr Garcia her primary oncologist for reassessment and discussion of goals of care. Leukocytosis: recommend rule out infection Thank you for consult
[2017-03-03] VITALS (7 sets, daily range): BP systolic 101–125; BP diastolic 70–95; PULSE 79–108; TEMP 36.8–37.3; O2SAT 95–100
--- NOTE | 2017-03-03 00:12 | Hospitalist Progress Note ---
Hospitalist Progress Note Date of Service Mar 03, 2017. Subjective Pt evaluation today including: conversation w/ patient, physical exam, chart review, lab review, conversation w/ big machine consultant Patient has decreased appetite no present complaints Objective Vital Signs Date Time Temp Pulse Resp B/P (MAP) Pulse Ox O2 Delivery O2 Flow Rate FiO2 03/02/17 23:47 37.3 93 22 132/73 (92) 98 Room Air 03/02/17 20:13 36.9 99 16 104/69 (81) 100 Room Air 03/02/17 20:00 96 Room Air 03/02/17 16:00 Room Air 03/02/17 15:33 36.8 109 16 103/71 (82) 96 Room Air 03/02/17 12:00 Room Air 03/02/17 11:57 36.4 101 19 99/58 (72) 99 Room Air 03/02/17 10:15 101 99 03/02/17 08:00 Room Air 03/02/17 07:08 36.9 102 18 104/72 (83) 98 Room Air 03/02/17 04:15 101 03/02/17 04:04 37.0 121 22 114/76 (89) 94 Room Air 03/02/17 04:00 Room Air Physical Exam General Appearance: no apparent distress ENT: hearing grossly normal Neck: trachea midline Respiratory/Chest: lungs clear Cardiovascular: regular rate, rhythm Abdomen: normal bowel sounds, non tender Extremities: normal inspection Neurologic/Psychiatric: alert Laboratory Results Last 24 Hours Test 03/02/17 06:32 03/02/17 17:29 White Blood Count 12.12 K/uL 17.74 K/uL Red Blood Count 2.37 M/uL 3.05 M/uL Hemoglobin 7.2 g/dL 9.0 g/dL Hematocrit 21.2 % 27.0 % Mean Corpuscular Volume 89.5 fL 88.5 fL Mean Corpuscular Hemoglobin 30.4 pg 29.5 pg Mean Corpuscular Hemoglobin Concent 34.0 g/dl 33.3 g/dl Platelet Count 457 K/uL 542 K/uL Mean Platelet Volume 10.4 fL 10.3 fL RDW Standard Deviation 65.6 fL 65.4 fL RDW Coefficient of Variation 23.1 % 23.3 % Neutrophils % (Manual) 67.5 % Lymphocytes % (Manual) 10.5 % Monocytes % (Manual) 12.3 % Metamyelocytes % 1.8 % Myelocytes % 7.9 % Neutrophils # (Manual) 8.18 K/uL Total Absolute Neutrophils 8.18 K/uL Lymphocytes # (Manual) 1.27 K/uL Total Absolute Lymphocytes 1.27 K/uL Monocytes # (Manual) 1.49 K/uL Metamyelocytes # 0.22 K/uL Myelocytes # 0.96 K/uL Anisocytosis PRESENT Ovalocytes 2+ Echinocytes 2+ Sodium Level 139 mmol/L Potassium Level 3.4 mmol/L Chloride Level 108 mmol/L Carbon Dioxide Level 22 mmol/L Anion Gap 9.0 mmol/L Blood Urea Nitrogen 28 mg/dl Creatinine 1.50 mg/dl Est Creatinine Clear Calc Drug Dose 23.3 ml/min Estimated GFR () 37.5 Estimated GFR (Non- 32.3 BUN/Creatinine Ratio 18.9 Random Glucose 126 mg/dl Calcium Level 7.6 mg/dl Total Bilirubin 1.1 mg/dl Direct Bilirubin 0.7 mg/dl Aspartate Amino Transf (AST/SGOT) 32 U/L Alanine Aminotransferase (ALT/SGPT) 35 U/L Alkaline Phosphatase 255 U/L Total Protein 5.0 gm/dl Albumin 2.0 gm/dl Nucleated RBC Absolute Count (auto) 0.06 K/uL Nucleated Red Blood Cells % 0.3 % Assessment and Plan (1) DVT (deep venous thrombosis) Assessment & Plan: Continue with Lovenox (2) Shortness of breath Assessment & Plan: Discussed with Dr. Aguilar will order chest x-ray question of pneumonia. Will consider VQ scan based upon chest x-ray results (3) Liver metastasis (4) Pancreatic cancer metastasized to liver Assessment & Plan: Patient is contemplating her next step. Continued chemotherapy if she is a candidate versus hospice care. The patient is in the hospital through the weekend, she can have that discussion with her primary oncologist, Dr. Izquierdo.
[2017-03-03 07:04] LABS: HEMATOCRIT 25.6 % (37-47); MEAN CELL VOLUME 87.1 fL (80-100); MEAN CORPUSCULAR HEMOGLOBIN 28.9 pg (25-34); MEAN CORPUSCULAR HGB CONC 33.2 g/dl (32-36); MEAN PLATELET VOLUME 9.7 fL (7.4-10.4); PLATELET COUNT 529 K/uL (130-400); RED BLOOD COUNT 2.94 M/uL (4.2-5.4); WHITE BLOOD COUNT 20.15 K/uL (4.8-10.8)
[2017-03-03 07:41] LABS: ANISOCYTOSIS PRESENT; COMPLETE YES; ECHINOCYTES 2+; EOSINOPHIL % 0.9 %; LYMPH ABS # 2.08 K/uL (1.2-3.4); LYMPHOCYTE % 10.3 %; META ABS # 2.26 K/uL (0-0); METAMYELOCYTE % 11.2 %; MYELOCYTE % 8.6 %; NEUTROPHILS % 61.2 %; OVALOCYTES 2+; SCHISTOCYTES 1+
[2017-03-03 07:52] LABS: CALCIUM 8.4 mg/dl (8.5-10.1); CREATININE 1.5 mg/dl (0.60-1.20); POTASSIUM 3.4 mmol/L (3.5-5.1)
--- NOTE | 2017-03-03 08:05 | DIAGNOSTIC IMAGING REPORT ---
CHEST ONE VIEW PORTABLE CLINICAL HISTORY: Shortness of breath. COMPARISON STUDY: Chest CT December 29, 2016. FINDINGS: A left shoulder arthroplasty is noted. There is a large hiatal hernia. There is no pneumothorax or pleural effusion. The appearance of the chest is unchanged. Cardiac size is normal. A common bile duct stent is partially imaged. The patient is rotated. IMPRESSION: 1. No acute cardiopulmonary findings. 2. Large hiatal hernia. Electronically signed by: Luis Paez M.D. 03/03/2017 8:03 AM Dictated Date/Time: 03/03/2017 8:02 AM
[2017-03-03] MEDS: SODIUM CHLORIDE 0.9% 1000ML 1,000 ML IV SCH (15:57)
[2017-03-03] MEDS: ENOXAPARIN 60 MG/0.6 ML SYR SQ SCH (18:03)
--- NOTE | 2017-03-03 20:32 | Hospitalist Progress Note ---
Hospitalist Progress Note Date of Service Mar 03, 2017. Subjective Pt evaluation today including: conversation w/ patient Patient with no complaints Objective Vital Signs Date Time Temp Pulse Resp B/P (MAP) Pulse Ox O2 Delivery O2 Flow Rate FiO2 03/03/17 20:00 98 Room Air 03/03/17 19:31 36.8 108 20 109/77 (88) 98 Room Air 03/03/17 16:00 Room Air 03/03/17 15:51 37.3 90 18 114/78 (90) 98 Room Air 03/03/17 12:00 Room Air 03/03/17 11:18 36.8 105 18 101/70 (80) 100 Room Air 03/03/17 08:00 Room Air 03/03/17 07:22 37.2 90 18 118/76 (90) 99 Room Air 03/03/17 04:15 37.0 79 20 125/83 (97) 97 Room Air 03/03/17 04:00 Room Air 03/03/17 00:00 Room Air 03/02/17 23:47 37.3 93 22 132/73 (92) 98 Room Air Physical Exam General Appearance: no apparent distress Neck: supple Respiratory/Chest: lungs clear Cardiovascular: regular rate, rhythm Abdomen: normal bowel sounds Laboratory Results Last 24 Hours Test 03/03/17 06:48 White Blood Count 20.15 K/uL Red Blood Count 2.94 M/uL Hemoglobin 8.5 g/dL Hematocrit 25.6 % Mean Corpuscular Volume 87.1 fL Mean Corpuscular Hemoglobin 28.9 pg Mean Corpuscular Hemoglobin Concent 33.2 g/dl Platelet Count 529 K/uL Mean Platelet Volume 9.7 fL RDW Standard Deviation 67.8 fL RDW Coefficient of Variation 23.2 % Neutrophils % (Manual) 61.2 % Lymphocytes % (Manual) 10.3 % Monocytes % (Manual) 7.8 % Eosinophils % (Manual) 0.9 % Metamyelocytes % 11.2 % Myelocytes % 8.6 % Neutrophils # (Manual) 12.33 K/uL Total Absolute Neutrophils 12.33 K/uL Lymphocytes # (Manual) 2.08 K/uL Total Absolute Lymphocytes 2.08 K/uL Monocytes # (Manual) 1.57 K/uL Eosinophils # (Manual) 0.18 K/uL Metamyelocytes # 2.26 K/uL Myelocytes # 1.73 K/uL Anisocytosis PRESENT Ovalocytes 2+ Echinocytes 2+ Schistocytes 1+ Sodium Level 137 mmol/L Potassium Level 3.4 mmol/L Chloride Level 106 mmol/L Carbon Dioxide Level 23 mmol/L Anion Gap 8.0 mmol/L Blood Urea Nitrogen 24 mg/dl Creatinine 1.50 mg/dl Est Creatinine Clear Calc Drug Dose 23.3 ml/min Estimated GFR () 37.5 Estimated GFR (Non- 32.3 BUN/Creatinine Ratio 16.0 Random Glucose 103 mg/dl Calcium Level 8.4 mg/dl Total Bilirubin 1.7 mg/dl Direct Bilirubin 1.0 mg/dl Aspartate Amino Transf (AST/SGOT) 44 U/L Alanine Aminotransferase (ALT/SGPT) 45 U/L Alkaline Phosphatase 368 U/L Total Protein 5.9 gm/dl Albumin 2.2 gm/dl Assessment and Plan (1) DVT (deep venous thrombosis) Assessment & Plan: Continue Lovenox treatment (2) Shortness of breath Assessment & Plan: Chest x-ray showed no active disease V/Q scan or CAT scan of the chest would document pulmonary embolism. At this point in time however the management would not change and she would need Lovenox therapy regardless of the results of these tests. Hold off on ordering. (3) Liver metastasis (4) Pancreatic cancer metastasized to liver Assessment & Plan: Discussed with the patient will await the return of her oncologist Dr. Izquierdo to discuss continued chemotherapy versus hospice care. Discharge planning: home (patient wants to go home when appropriate)
[2017-03-04] VITALS (9 sets, daily range): BP systolic 96–116; BP diastolic 62–76; PULSE 82–101; TEMP 36.6–37; O2SAT 94–100
[2017-03-04] MEDS: SODIUM CHLORIDE 0.9% 1000ML 1,000 ML IV SCH (00:35)
[2017-03-04 05:57] LABS: MEAN CORPUSCULAR HGB CONC 32.6 g/dl (32-36); MEAN PLATELET VOLUME 9.8 fL (7.4-10.4); PLATELET COUNT 507 K/uL (130-400)
[2017-03-04 06:26] LABS: ANISOCYTOSIS PRESENT; COMPLETE YES; ECHINOCYTES 2+; HEMATOCRIT 23.9 % (37-47); LYMPH ABS # 1.75 K/uL (1.2-3.4); LYMPHOCYTE % 6.8 %; MEAN CELL VOLUME 90.2 fL (80-100); MEAN CORPUSCULAR HEMOGLOBIN 29.4 pg (25-34); META ABS # 2.65 K/uL (0-0); METAMYELOCYTE % 10.3 %; MYELOCYTE % 2.6 %; OVALOCYTES 2+; POLYCHROMASIA 1+; RED BLOOD COUNT 2.65 M/uL (4.2-5.4); SCHISTOCYTES 1+
[2017-03-04 10:20] LABS: URINE APPEARANCE CLOUDY (CLEAR); URINE BILIRUBIN NEG (NEG); URINE COLOR YELLOW; URINE NITRITE NEG (NEG); URINE SPECIFIC GRAVITY 1.014 (1.000-1.030); UROBILINOGEN NEG (NEG); ZZUR CULT IF INDIC CLEAN CATCH YES
[2017-03-04 10:29] LABS: MANUAL MICROSCOPIC REQUIRED? NO; REVIEW REQ? YES
[2017-03-04] MEDS ORDERED: NURSING VERBAL MED ORDER ONE (12:00)
[2017-03-04] MEDS: ENOXAPARIN 60 MG/0.6 ML SYR SQ SCH (18:00)
--- NOTE | 2017-03-04 19:30 | Hospitalist Progress Note ---
Hospitalist Progress Note Date of Service Mar 04, 2017. Subjective Pt evaluation today including: conversation w/ patient, conversation w/ family , chart review, lab review Patient has diminished appetite and strength however otherwise has no complaints Objective Vital Signs Date Time Temp Pulse Resp B/P (MAP) Pulse Ox O2 Delivery O2 Flow Rate FiO2 03/04/17 16:11 36.7 101 19 109/75 (86) 100 Room Air 03/04/17 16:00 Room Air 03/04/17 14:13 36.7 100 18 96/62 (73) 99 Room Air 03/04/17 12:00 Room Air 03/04/17 11:42 36.6 96 18 106/73 (84) 96 03/04/17 08:00 Room Air 03/04/17 07:37 36.8 82 18 116/76 (89) 94 03/04/17 04:51 37.0 96 16 113/72 (86) 99 Room Air 03/04/17 04:00 98 Room Air 03/04/17 00:00 98 Room Air 03/03/17 23:49 37.0 18 104/95 (98) 95 03/03/17 20:00 98 Room Air 03/03/17 19:31 36.8 108 20 109/77 (88) 98 Room Air Physical Exam General Appearance: no apparent distress ENT: hearing grossly normal Neck: trachea midline Respiratory/Chest: lungs clear Cardiovascular: regular rate, rhythm Abdomen: normal bowel sounds Extremities: normal inspection Neurologic/Psychiatric: alert Laboratory Results Last 24 Hours Test 03/04/17 05:34 03/04/17 09:50 White Blood Count 25.70 K/uL Red Blood Count 2.65 M/uL Hemoglobin 7.8 g/dL Hematocrit 23.9 % Mean Corpuscular Volume 90.2 fL Mean Corpuscular Hemoglobin 29.4 pg Mean Corpuscular Hemoglobin Concent 32.6 g/dl Platelet Count 507 K/uL Mean Platelet Volume 9.8 fL RDW Standard Deviation 70.9 fL RDW Coefficient of Variation 23.9 % Neutrophils % (Manual) 70.0 % Lymphocytes % (Manual) 6.8 % Monocytes % (Manual) 10.3 % Metamyelocytes % 10.3 % Myelocytes % 2.6 % Neutrophils # (Manual) 17.99 K/uL Total Absolute Neutrophils 17.99 K/uL Lymphocytes # (Manual) 1.75 K/uL Total Absolute Lymphocytes 1.75 K/uL Monocytes # (Manual) 2.65 K/uL Metamyelocytes # 2.65 K/uL Myelocytes # 0.67 K/uL Polychromasia 1+ Anisocytosis PRESENT Ovalocytes 2+ Echinocytes 2+ Schistocytes 1+ Urine Color YELLOW Urine Appearance CLOUDY Urine pH 5.0 Urine Specific [place] 1.014 Urine Protein TRACE Urine Glucose (UA) NEG Urine Ketones NEG Urine Occult Blood NEG Urine Nitrite NEG Urine Bilirubin NEG Urine Urobilinogen NEG Urine Leukocyte Esterase TRACE Urine WBC (Auto) 5-10 /hpf Urine RBC (Auto) 0-4 /hpf Urine Hyaline Casts (Auto) 1-5 /lpf Urine Epithelial Cells (Auto) 10-20 /lpf Urine Bacteria (Auto) NEG Urine Yeast (Auto) Assessment and Plan (1) DVT (deep venous thrombosis) Assessment & Plan: On treatment dose Lovenox with decreasing hemoglobin. We' ll Hep-Lock IV. We'll check hemoglobin tomorrow. If patient's hemoglobin is still falling consideration of filter instead of anticoagulation. (2) Shortness of breath Assessment & Plan: Patient has presumed pulmonary embolism based upon her pancreatic cancer with extensive DVT. VQ scan or CAT scan would not change the need for anticoagulation. (3) Liver metastasis (4) Pancreatic cancer metastasized to liver Assessment & Plan: The patient has a poor performance status per nursing staff she is almost an assist of two. Dr. Garcia is her treating oncologist and will discuss his continued chemotherapy would be of benefit to the patient. I discussed the patient's care with her daughter yesterday. The patient's has advanced dementia. If the decision is that the patient should go home with hospice care, I encouraged the patient's daughter to see if patient's and also qualifies for hospice care. If both parents are in hospice care additional services may be available to both under the hospice benefit. The office of the aging is already involved. My hope is that services will be maximized for both the patient and her , allowing the healthcare system to better support the patient's daughter. Palliative care is following and will be helpful for care coordination/goals of care discussion, once the patient is discussed her care with Dr. Garcia.
[2017-03-05] VITALS (7 sets, daily range): BP systolic 93–113; BP diastolic 56–75; PULSE 87–106; TEMP 36.6–37.1; O2SAT 99–100
[2017-03-05 06:22] LABS: BUN/CREATININE RATIO 16.1 (10-20); CALCIUM 8.2 mg/dl (8.5-10.1); CREATININE 1.2 mg/dl (0.60-1.20); POTASSIUM 3.3 mmol/L (3.5-5.1)
[2017-03-05 07:37] LABS: MEAN CELL VOLUME 90.3 fL (80-100); MEAN CORPUSCULAR HEMOGLOBIN 28.2 pg (25-34); MEAN CORPUSCULAR HGB CONC 31.2 g/dl (32-36); MEAN PLATELET VOLUME 10.3 fL (7.4-10.4); PLATELET COUNT 564 K/uL (130-400); RED BLOOD COUNT 2.77 M/uL (4.2-5.4); WHITE BLOOD COUNT 33.24 K/uL (4.8-10.8)
[2017-03-05 07:50] LABS: ANISOCYTOSIS PRESENT; COMPLETE YES; EOSINOPHIL % 1.7 %; LYMPH ABS # 1.13 K/uL (1.2-3.4); LYMPHOCYTE % 3.4 %; META ABS # 2.53 K/uL (0-0); METAMYELOCYTE % 7.6 %; MYELOCYTE % 5.1 %; NEUTROPHILS % 75.4 %; OVALOCYTES 2+; SCHISTOCYTES 1+
[2017-03-05] MEDS ORDERED: POTASSIUM CHLORIDE 10 MEQ TABCR PO STA (12:04)
[2017-03-05 12:35] LABS: HEMATOCRIT 23.1 % (37-47)
--- NOTE | 2017-03-05 13:11 | Palliative Care Progress Note ---
Palliative Care Progress Note Date of Service Mar 05, 2017. Subjective Pt evaluation today including: conversation w/ patient, physical exam, chart review, conversation w/ toy consultant (Dr. Mas), review of inpatient medication list Pain: 1/10 in abdomen at this time "as long as no one's touching it." PO Intake: poor appetite Voiding: no voiding problems -Patient is awake, alert and oriented x4 but is forgetful. Did not remember me at first but then when we went over our discussion on Sunday, she remembered. -She is feeling confused and conflicted about whether or not to continue chemo. Says she feels "lousy," and if it wasn't for worrying about her that she would stop chemo now. -She is having lower abdominal pain, only 1/10 now. -Still with poor appetite and weakness. Review of Systems Constitutional: + weakness Respiratory: No cough, No shortness of breath Cardiac: + edema (RLE), No chest pain Abdomen: No pain, No nausea, No vomiting Psychiatric: No anxiety Heme: + clotting problems (this admission) Objective Vital Signs Date Time Temp Pulse Resp B/P (MAP) Pulse Ox O2 Delivery O2 Flow Rate FiO2 03/05/17 11:22 36.6 94 18 93/56 (68) 100 Room Air 03/05/17 08:30 99 Room Air 03/05/17 07:11 37.1 100 20 110/74 (86) 99 Room Air 03/05/17 04:00 36.6 106 20 113/75 (88) 99 Room Air 03/04/17 23:33 36.8 94 20 110/75 (87) 99 Room Air 03/04/17 23:25 Room Air 03/04/17 19:29 36.7 101 20 104/69 (81) 100 Room Air 03/04/17 16:11 36.7 101 19 109/75 (86) 100 Room Air 03/04/17 16:00 Room Air 03/04/17 14:13 36.7 100 18 96/62 (73) 99 Room Air Physical Exam General Appearance: no apparent distress, + thin ENT: hearing grossly normal Neck: supple, no JVD Respiratory/Chest: lungs clear, no respiratory distress, no accessory muscle use Cardiovascular: regular rate, rhythm, + normal peripheral pulses, + pertinent finding (RLE with +2 pitting edema) Abdomen: normal bowel sounds, soft, + tenderness (no guarding. no rebound tenderness) Neurologic/Psychiatric: alert, normal mood/affect, oriented x 3 (is forgetful) Laboratory Results Last 24 Hours Test 03/04/17 22:14 03/05/17 05:14 03/05/17 06:44 03/05/17 12:00 Heparin Anti-Xa Act, Low Molec Wt 0.74 IU/ML Sodium Level 138 mmol/L Potassium Level 3.3 mmol/L Chloride Level 107 mmol/L Carbon Dioxide Level 20 mmol/L Anion Gap 11.0 mmol/L Blood Urea Nitrogen 19 mg/dl Creatinine 1.20 mg/dl Est Creatinine Clear Calc Drug Dose 29.1 ml/min Estimated GFR () 49.1 Estimated GFR (Non- 42.4 BUN/Creatinine Ratio 16.1 Random Glucose 141 mg/dl Calcium Level 8.2 mg/dl White Blood Count 33.24 K/uL Red Blood Count 2.77 M/uL Hemoglobin 7.8 g/dL Hematocrit 25.0 % Mean Corpuscular Volume 90.3 fL Mean Corpuscular Hemoglobin 28.2 pg Mean Corpuscular Hemoglobin Concent 31.2 g/dl Platelet Count 564 K/uL Mean Platelet Volume 10.3 fL RDW Standard Deviation 71.7 fL RDW Coefficient of Variation 23.9 % Nucleated RBC Absolute Count (auto) 0.06 K/uL Neutrophils % (Manual) 75.4 % Lymphocytes % (Manual) 3.4 % Monocytes % (Manual) 6.8 % Eosinophils % (Manual) 1.7 % Metamyelocytes % 7.6 % Myelocytes % 5.1 % Nucleated Red Blood Cells % 0.2 % Neutrophils # (Manual) 25.06 K/uL Total Absolute Neutrophils 25.06 K/uL Lymphocytes # (Manual) 1.13 K/uL Total Absolute Lymphocytes 1.13 K/uL Monocytes # (Manual) 2.26 K/uL Eosinophils # (Manual) 0.57 K/uL Metamyelocytes # 2.53 K/uL Myelocytes # 1.70 K/uL Anisocytosis PRESENT Ovalocytes 2+ Schistocytes 1+ Assessment and Plan Problem list: SOB- resolved Weakness Poor appetite Patient-reported weight loss- unsure of how much Pancreatic cancer- mets to liver DVT- RLE- on Lovenox CINTIA- improving Hypoalbuminemia- 2.0 Anemia- Hgb 7.8 yesterday and today Leukocytosis- pinpoint growth on urine culture, blood cultures pending today Goals of care (Z51.5) Palliative care recommendations: -WBCs elevated to 32k today- blood cultures drawn. Patient has been afebrile, essentially no symptoms at all over than her weakness and decreased appetite. -Patient stated to me today that if she was not concerned about her and what will happen to him when she passes away, she would stop receiving chemo now. She said, "I just don't see what good it's doing me. I'm trying to think of one good thing about it and I can't." -Patient would like to speak to her primary oncologist about the matter. If patient is going to be in hospital for a while now with this worsening leukocytosis, question of chemical AC vs. filter placement (if hgb drops), perhaps hospitalist would like to call and touch base with Dr. Garcia. He may just want to follow up outpatient unless patient has a change in condition. -Dr. Aguilar recommended pharmacy consult for AC. Still on Lovenox at this time. -Encouraged patient to talk to her daughter, Mely, about her concerns. Patient declined me calling Mely and said she'd rather talk to her about these things herself. I told her I would check in tomorrow. -Patient is aware of hospice services but doesn't know a whole lot. She had some questions, which I answered. Patient stated that once she is done with chemo, she would be amenable to the home hospice service. There are caregivers in her home 05/03, mostly for her with advanced dementia, but they could probably be there for her as well. -Patient with mild abdominal pain. Patient was quite vague with me about the abdominal pain- no specific area or spot, but mostly lower abdomen. Said that it is constantly very mild and hurts a little worse when palpated. It is an ache -like pain. Patient says that it hurts when she receives the Lovenox shots and thought that the pain has started about the same time she started getting the shots. She is moving her bowels regularly. Will continue to follow. Palliative Performance Scale: 50 % Discharge planning: home (patient wants to go home when appropriate)
--- NOTE | 2017-03-05 14:42 | DIAGNOSTIC IMAGING REPORT ---
CHEST ONE VIEW PORTABLE HISTORY: 81 years-old Female leukocytosis COMPARISON: Chest radiograph 03/03/2017, CT chest 12/19/2016 TECHNIQUE: Portable upright AP view of the chest FINDINGS: The cardiac silhouette is within normal limits. There is unchanged mild nodularity of the right trell without associated mass seen on comparison CT dated 12/19/2016. Large hiatal hernia with partially intrathoracic stomach is redemonstrated. There is no pneumothorax, pleural effusion or focal airspace consolidation. No overt pulmonary edema. Left shoulder arthroplasty is seen. Moderate to severe degenerative changes are seen within the right shoulder. There is a biliary catheter of the right upper abdomen which is partially imaged. IMPRESSION: 1. No acute cardiopulmonary process. 2. Biliary catheter of the right upper abdomen is partially imaged. 3. Large hiatal hernia with partially intrathoracic stomach. The above report was generated using voice recognition software. It may contain grammatical, syntax or spelling errors. Electronically signed by: López Yoon M.D. 03/05/2017 2:41 PM Dictated Date/Time: 03/05/2017 2:38 PM
--- NOTE | 2017-03-05 15:02 | Progress Note ---
Subjective Date of Service: Mar 05, 2017. Subjective Pt evaluation today including: conversation w/ patient, conversation w/ family , physical exam, lab review, review of studies, conversation w/ database consultant, review of inpatient medication list No issues overnight Resting comfortably in bed Review of Systems Constitutional: No fever, No chills, No sweats, No weight loss, No weakness ENT: No hearing loss, No unusual epistaxis, No nasal symptoms, No sore throat Respiratory: No cough, No sputum, No wheezing, No shortness of breath, No dyspnea on exertion Cardiac: No chest pain, No orthopnea, No PND, No edema, No claudication Abdomen: No pain, No nausea, No vomiting, No diarrhea, No constipation Musculoskeletal: No joint pain, No muscle pain, No swelling, No calf pain Female : No dysuria, No urinary frequency, No hematuria, No incontinence Neurologic: No memory loss, No paralysis, No weakness, No numbness/tingling Psychiatric: No depression symptoms, No anhedonism, No anxiety Skin: No rash, No itch Objective Vital Signs Date Time Temp Pulse Resp B/P (MAP) Pulse Ox O2 Delivery O2 Flow Rate FiO2 03/05/17 11:22 36.6 94 18 93/56 (68) 100 Room Air 03/05/17 08:30 99 Room Air 03/05/17 07:11 37.1 100 20 110/74 (86) 99 Room Air 03/05/17 04:00 36.6 106 20 113/75 (88) 99 Room Air 03/04/17 23:33 36.8 94 20 110/75 (87) 99 Room Air 03/04/17 23:25 Room Air 03/04/17 19:29 36.7 101 20 104/69 (81) 100 Room Air 03/04/17 16:11 36.7 101 19 109/75 (86) 100 Room Air 03/04/17 16:00 Room Air Physical Exam General Appearance: WD/WN, no apparent distress Eyes: normal inspection, PERRL, EOMI, sclerae normal Neck: supple, no adenopathy, thyroid normal, no JVD Respiratory/Chest: chest non-tender, lungs clear, normal breath sounds, no respiratory distress, no accessory muscle use Cardiovascular: regular rate, rhythm, no edema, no gallop, no JVD Abdomen: normal bowel sounds, non tender, soft, no organomegaly Neurologic/Psychiatric: no motor/sensory deficits, alert, normal mood/affect, + disoriented Laboratory Results Last 24 Hours Test 03/04/17 22:14 03/05/17 05:14 03/05/17 06:44 03/05/17 12:08 Heparin Anti-Xa Act, Low Molec Wt 0.74 IU/ML Sodium Level 138 mmol/L Potassium Level 3.3 mmol/L Chloride Level 107 mmol/L Carbon Dioxide Level 20 mmol/L Anion Gap 11.0 mmol/L Blood Urea Nitrogen 19 mg/dl Creatinine 1.20 mg/dl Est Creatinine Clear Calc Drug Dose 29.1 ml/min Estimated GFR () 49.1 Estimated GFR (Non- 42.4 BUN/Creatinine Ratio 16.1 Random Glucose 141 mg/dl Calcium Level 8.2 mg/dl White Blood Count 33.24 K/uL Red Blood Count 2.77 M/uL Hemoglobin 7.8 g/dL 7.7 g/dL Hematocrit 25.0 % 23.1 % Mean Corpuscular Volume 90.3 fL Mean Corpuscular Hemoglobin 28.2 pg Mean Corpuscular Hemoglobin Concent 31.2 g/dl Platelet Count 564 K/uL Mean Platelet Volume 10.3 fL RDW Standard Deviation 71.7 fL RDW Coefficient of Variation 23.9 % Nucleated RBC Absolute Count (auto) 0.06 K/uL Neutrophils % (Manual) 75.4 % Lymphocytes % (Manual) 3.4 % Monocytes % (Manual) 6.8 % Eosinophils % (Manual) 1.7 % Metamyelocytes % 7.6 % Myelocytes % 5.1 % Nucleated Red Blood Cells % 0.2 % Neutrophils # (Manual) 25.06 K/uL Total Absolute Neutrophils 25.06 K/uL Lymphocytes # (Manual) 1.13 K/uL Total Absolute Lymphocytes 1.13 K/uL Monocytes # (Manual) 2.26 K/uL Eosinophils # (Manual) 0.57 K/uL Metamyelocytes # 2.53 K/uL Myelocytes # 1.70 K/uL Anisocytosis PRESENT Ovalocytes 2+ Schistocytes 1+ Assessment and Plan (1) DVT (deep venous thrombosis) Assessment & Plan: On treatment dose Lovenox with decreasing hemoglobin. Hg stabilized, cont to monitor No pain in affected leg, swelling decreased (2) Shortness of breath Assessment & Plan: Patient has presumed pulmonary embolism based upon her pancreatic cancer with extensive DVT. VQ scan or CAT scan would not change the need for anticoagulation. No worsening sob noted (3) Liver metastasis (4) Pancreatic cancer metastasized to liver Assessment & Plan: Spoke with daughter at length Will investigate ?source of infection Worsening leukocytosis Will need f/u with onc as OP Likely poor candidate for ongoing chemo Palliative care consulted, appreciate recs Discharge planning: home (patient wants to go home when appropriate)
[2017-03-05] MEDS ORDERED: LEVOFLOXACIN / D5W 750 MG in PREMIXED IN D5W 150 ML IV SCH (17:00)
[2017-03-05] MEDS: ENOXAPARIN 60 MG/0.6 ML SYR SQ SCH (17:33)
[2017-03-06] VITALS (8 sets, daily range): BP systolic 104–113; BP diastolic 66–73; PULSE 86–101; TEMP 36.3–37.2; O2SAT 84–100
[2017-03-06 08:04] LABS: BUN/CREATININE RATIO 18.6 (10-20); CALCIUM 7.9 mg/dl (8.5-10.1); CREATININE 1.2 mg/dl (0.60-1.20); POTASSIUM 3.3 mmol/L (3.5-5.1)
[2017-03-06 08:08] LABS: ALB/GLOB RATIO 0.5 (0.9-2)
[2017-03-06] MEDS ORDERED: POTASSIUM CHLR 20 MEQ / WTR 20 MEQ in PREMIXED WATER 100 ML IV STA (09:11)
[2017-03-06] MEDS: POTASSIUM CHLR 10MEQ / WTR IV SCH ×2 (09:26→10:43)
[2017-03-06 10:36] LABS: HEMATOCRIT 21.8 % (37-47); MEAN CELL VOLUME 89.7 fL (80-100); MEAN CORPUSCULAR HEMOGLOBIN 29.6 pg (25-34); MEAN PLATELET VOLUME 9.8 fL (7.4-10.4); PLATELET COUNT 509 K/uL (130-400); RED BLOOD COUNT 2.43 M/uL (4.2-5.4); WHITE BLOOD COUNT 35.57 K/uL (4.8-10.8)
[2017-03-06 11:01] LABS: ANISOCYTOSIS PRESENT; COMPLETE YES; ECHINOCYTES 3+; LYMPH ABS # 0.64 K/uL (1.2-3.4); LYMPHOCYTE % 1.8 %; META ABS # 1.89 K/uL (0-0); METAMYELOCYTE % 5.3 %; MYELOCYTE % 16.7 %; NEUTROPHILS % 71.8 %; OVALOCYTES 1+
[2017-03-06] MEDS ORDERED: PIPERACILL/TAZOBAC CONSULT ACTIVE PRN (13:45)
[2017-03-06] MEDS ORDERED: PIPERACILL/TAZOBAC IV 3.375 GM in DEXTROSE 5% 100ML IV ONE (14:00)
--- NOTE | 2017-03-06 15:06 | Progress Note ---
Subjective Date of Service: Mar 06, 2017. Subjective Pt evaluation today including: conversation w/ patient, physical exam, chart review, lab review, review of studies, review of inpatient medication list Pt reports feeling tired and sluggish No distress noted No acute events overnight Review of Systems Constitutional: + weakness, + fatigue, No fever, No chills ENT: No hearing loss, No unusual epistaxis, No nasal symptoms, No sore throat Respiratory: No cough, No sputum, No wheezing, No shortness of breath, No dyspnea on exertion Cardiac: No chest pain, No orthopnea, No PND, No edema, No claudication Abdomen: No pain, No nausea, No vomiting, No diarrhea, No constipation Musculoskeletal: No joint pain, No muscle pain, No swelling, No calf pain Female : No dysuria, No urinary frequency, No hematuria, No incontinence Neurologic: No memory loss, No paralysis, No weakness, No numbness/tingling Psychiatric: No depression symptoms, No anhedonism, No anxiety, No insomnia Endo: No fatigue Skin: No rash, No itch Objective Vital Signs Date Time Temp Pulse Resp B/P (MAP) Pulse Ox O2 Delivery O2 Flow Rate FiO2 03/06/17 08:00 Room Air 03/06/17 07:31 37.2 101 18 113/73 (86) 99 03/06/17 03:55 36.9 99 20 106/71 (83) 93 Room Air 03/06/17 00:57 36.8 95 20 108/72 (84) 99 Room Air 03/06/17 00:00 Room Air 03/05/17 20:00 Room Air 03/05/17 19:02 36.6 87 22 110/73 (85) 99 Room Air 03/05/17 15:44 36.6 99 18 94/65 (75) 99 Room Air 03/05/17 15:04 99 Room Air Physical Exam General Appearance: WD/WN, no apparent distress Neck: supple, no adenopathy, thyroid normal, no JVD Respiratory/Chest: chest non-tender, lungs clear, normal breath sounds, no respiratory distress Cardiovascular: regular rate, rhythm, no edema, no gallop, no murmur Abdomen: normal bowel sounds, non tender, soft, no organomegaly Extremities: normal range of motion, non-tender, normal inspection, no pedal edema Neurologic/Psychiatric: no motor/sensory deficits, alert, normal mood/affect Laboratory Results Last 24 Hours Test 03/06/17 06:39 White Blood Count 35.57 K/uL Red Blood Count 2.43 M/uL Hemoglobin 7.2 g/dL Hematocrit 21.8 % Mean Corpuscular Volume 89.7 fL Mean Corpuscular Hemoglobin 29.6 pg Mean Corpuscular Hemoglobin Concent 33.0 g/dl Platelet Count 509 K/uL Mean Platelet Volume 9.8 fL RDW Standard Deviation 74.8 fL RDW Coefficient of Variation 25.5 % Nucleated RBC Absolute Count (auto) 0.09 K/uL Neutrophils % (Manual) 71.8 % Lymphocytes % (Manual) 1.8 % Monocytes % (Manual) 4.4 % Metamyelocytes % 5.3 % Myelocytes % 16.7 % Nucleated Red Blood Cells % 0.3 % Neutrophils # (Manual) 25.54 K/uL Total Absolute Neutrophils 25.54 K/uL Lymphocytes # (Manual) 0.64 K/uL Total Absolute Lymphocytes 0.64 K/uL Monocytes # (Manual) 1.57 K/uL Metamyelocytes # 1.89 K/uL Myelocytes # 5.94 K/uL Anisocytosis PRESENT Ovalocytes 1+ Echinocytes 3+ Sodium Level 139 mmol/L Potassium Level 3.3 mmol/L Chloride Level 107 mmol/L Carbon Dioxide Level 21 mmol/L Anion Gap 11.0 mmol/L Blood Urea Nitrogen 22 mg/dl Creatinine 1.20 mg/dl Est Creatinine Clear Calc Drug Dose 29.1 ml/min Estimated GFR () 49.1 Estimated GFR (Non- 42.4 BUN/Creatinine Ratio 18.6 Random Glucose 95 mg/dl Calcium Level 7.9 mg/dl Total Bilirubin 1.3 mg/dl Aspartate Amino Transf (AST/SGOT) 28 U/L Alanine Aminotransferase (ALT/SGPT) 25 U/L Alkaline Phosphatase 298 U/L Total Protein 5.0 gm/dl Albumin 1.7 gm/dl Globulin 3.3 gm/dl Albumin/Globulin Ratio 0.5 Assessment and Plan (1) DVT (deep venous thrombosis) Assessment & Plan: On treatment dose Lovenox with decreasing hemoglobin. Hg 7.2, cont to trend No pain in affected leg, swelling decreased (2) Shortness of breath Assessment & Plan: Patient has presumed pulmonary embolism based upon her pancreatic cancer with extensive DVT. VQ scan or CAT scan would not change the need for anticoagulation. No worsening sob noted (3) Liver metastasis (4) Pancreatic cancer metastasized to liver Assessment & Plan: Spoke with daughter at length Will investigate ?source of infection Worsening leukocytosis, switch levaquin to zosyn 3.375 mg IV q 6 hrs Will need f/u with onc as OP Likely poor candidate for ongoing chemo Palliative care consulted, appreciate recs Discharge planning: home (patient wants to go home when appropriate)
[2017-03-06 15:52] LABS: HEMATOCRIT 23.8 % (37-47)
[2017-03-06] MEDS: ACETAMINOPHEN 325 MG TAB PO PRN (17:31)
[2017-03-06] MEDS ORDERED: PIPERACILL/TAZOBAC IV 3.375 GM in DEXTROSE 5% 100ML 100 ML IV SCH (18:00)
[2017-03-06] MEDS: ENOXAPARIN 60 MG/0.6 ML SYR SQ SCH (18:46)
[2017-03-06] MEDS: PIPERACILL/TAZOBAC IV 3.375 GM in DEXTROSE 5% 100ML IV SCH (19:45)
[2017-03-06] MEDS ORDERED: NURSING VERBAL MED ORDER ONE (22:45)
[2017-03-06] MEDS: TEMAZEPAM 7.5 MG CAP PO PRN (23:14)
[2017-03-07] VITALS (8 sets, daily range): BP systolic 102–132; BP diastolic 65–84; PULSE 88–108; TEMP 36.4–37.3; O2SAT 91–100
[2017-03-07] MEDS: PIPERACILL/TAZOBAC IV 3.375 GM in DEXTROSE 5% 100ML IV SCH ×3 (04:15→19:52)
[2017-03-07 07:24] LABS: BUN/CREATININE RATIO 17.8 (10-20); CALCIUM 7.8 mg/dl (8.5-10.1); CREATININE 1.2 mg/dl (0.60-1.20); POTASSIUM 3.7 mmol/L (3.5-5.1)
[2017-03-07 07:26] LABS: ALB/GLOB RATIO 0.5 (0.9-2)
[2017-03-07 08:01] LABS: HEMATOCRIT 23.6 % (37-47); MEAN CELL VOLUME 90.4 fL (80-100); MEAN CORPUSCULAR HEMOGLOBIN 29.5 pg (25-34); MEAN CORPUSCULAR HGB CONC 32.6 g/dl (32-36); MEAN PLATELET VOLUME 9.8 fL (7.4-10.4); PLATELET COUNT 477 K/uL (130-400); RED BLOOD COUNT 2.61 M/uL (4.2-5.4); WHITE BLOOD COUNT 39.55 K/uL (4.8-10.8)
[2017-03-07 08:39] LABS: ANISOCYTOSIS PRESENT; COMPLETE YES; ECHINOCYTES 1+; LYMPH ABS # 2.37 K/uL (1.2-3.4); META ABS # 3.72 K/uL (0-0); METAMYELOCYTE % 9.4 %; MYELOCYTE % 9.4 %; NEUTROPHILS % 70.9 %; OVALOCYTES 1+
--- NOTE | 2017-03-07 16:43 | Progress Note ---
Subjective Date of Service: Mar 07, 2017. Subjective Pt evaluation today including: conversation w/ patient, physical exam, chart review, lab review, review of studies, review of inpatient medication list Pt resting comfortably in bed Denies any distress Palliative care to meet with pt and family Review of Systems Constitutional: No fever, No chills, No sweats, No weight loss Eyes: No worsening of vision, No eye pain, No redness, No discharge Respiratory: No cough, No sputum, No wheezing, No shortness of breath Cardiac: No chest pain, No orthopnea, No PND, No edema Abdomen: No pain, No nausea, No vomiting, No diarrhea Musculoskeletal: No joint pain, No muscle pain, No swelling, No calf pain Female : No dysuria, No urinary frequency, No hematuria, No incontinence Neurologic: No memory loss, No paralysis, No weakness, No numbness/tingling Psychiatric: No depression symptoms, No anhedonism, No anxiety, No insomnia Endo: No fatigue, No excessive thirst Skin: No rash, No itch Objective Vital Signs Date Time Temp Pulse Resp B/P (MAP) Pulse Ox O2 Delivery O2 Flow Rate FiO2 03/07/17 16:00 Room Air 03/07/17 15:15 36.5 93 22 106/71 (83) 100 Room Air 03/07/17 11:56 36.8 95 24 106/69 (81) 98 Room Air 03/07/17 08:30 100 Room Air 03/07/17 07:30 37.3 105 20 126/84 (98) 100 Room Air 03/07/17 04:15 36.4 88 20 132/82 (99) 98 Room Air 03/07/17 00:00 100 Room Air 03/06/17 23:06 36.3 86 17 104/68 (80) 84 Room Air 03/06/17 20:00 100 Room Air 03/06/17 19:57 36.7 97 18 104/66 (79) 100 Room Air Physical Exam General Appearance: WD/WN, no apparent distress Eyes: normal inspection, PERRL, EOMI, sclerae normal Neck: supple, no adenopathy, thyroid normal, no JVD Respiratory/Chest: chest non-tender, lungs clear, normal breath sounds, no respiratory distress Cardiovascular: regular rate, rhythm, no edema, no gallop, no JVD Abdomen: normal bowel sounds, non tender, soft, no organomegaly Extremities: normal range of motion, non-tender, normal inspection, no pedal edema Neurologic/Psychiatric: no motor/sensory deficits, alert, normal mood/affect Laboratory Results Last 24 Hours Test 03/07/17 06:33 03/07/17 07:40 Sodium Level 140 mmol/L Potassium Level 3.7 mmol/L Chloride Level 111 mmol/L Carbon Dioxide Level 20 mmol/L Anion Gap 9.0 mmol/L Blood Urea Nitrogen 21 mg/dl Creatinine 1.20 mg/dl Est Creatinine Clear Calc Drug Dose 29.1 ml/min Estimated GFR () 49.1 Estimated GFR (Non- 42.4 BUN/Creatinine Ratio 17.8 Random Glucose 104 mg/dl Calcium Level 7.8 mg/dl Total Bilirubin 1.5 mg/dl Aspartate Amino Transf (AST/SGOT) 33 U/L Alanine Aminotransferase (ALT/SGPT) 28 U/L Alkaline Phosphatase 361 U/L Total Protein 5.2 gm/dl Albumin 1.8 gm/dl Globulin 3.4 gm/dl Albumin/Globulin Ratio 0.5 White Blood Count 39.55 K/uL Red Blood Count 2.61 M/uL Hemoglobin 7.7 g/dL Hematocrit 23.6 % Mean Corpuscular Volume 90.4 fL Mean Corpuscular Hemoglobin 29.5 pg Mean Corpuscular Hemoglobin Concent 32.6 g/dl Platelet Count 477 K/uL Mean Platelet Volume 9.8 fL RDW Standard Deviation 76.6 fL RDW Coefficient of Variation 25.4 % Nucleated RBC Absolute Count (auto) 0.08 K/uL Neutrophils % (Manual) 70.9 % Lymphocytes % (Manual) 6.0 % Monocytes % (Manual) 4.3 % Metamyelocytes % 9.4 % Myelocytes % 9.4 % Nucleated Red Blood Cells % 0.2 % Neutrophils # (Manual) 28.04 K/uL Total Absolute Neutrophils 28.04 K/uL Lymphocytes # (Manual) 2.37 K/uL Total Absolute Lymphocytes 2.37 K/uL Monocytes # (Manual) 1.70 K/uL Metamyelocytes # 3.72 K/uL Myelocytes # 3.72 K/uL Anisocytosis PRESENT Ovalocytes 1+ Echinocytes 1+ Assessment and Plan (1) DVT (deep venous thrombosis) Assessment & Plan: On treatment dose Lovenox with decreasing hemoglobin. Hg 7.7 today, improving from yesterday No pain in affected leg, swelling decreased (2) Shortness of breath Assessment & Plan: Patient has presumed pulmonary embolism based upon her pancreatic cancer with extensive DVT. VQ scan or CAT scan would not change the need for anticoagulation. No worsening sob noted (3) Liver metastasis (4) Pancreatic cancer metastasized to liver Assessment & Plan: Spoke with daughter at length Will investigate ?source of infection Worsening leukocytosis, switch levaquin to zosyn 3.375 mg IV q 6 hrs BC NGTD Will need f/u with onc as OP Likely poor candidate for ongoing chemo Palliative care consulted, appreciate recs Awaiting placement at this time Discharge planning: home (patient wants to go home when appropriate)
[2017-03-07] MEDS: ENOXAPARIN 60 MG/0.6 ML SYR SQ SCH (17:43)
[2017-03-08] MEDS: PIPERACILL/TAZOBAC IV 3.375 GM in DEXTROSE 5% 100ML IV SCH ×3 (03:55→19:40)
[2017-03-08 04:08] VITALS: BP 113/76; PULSE 90; TEMP 36.8; O2SAT 100
[2017-03-08] MEDS: ACETAMINOPHEN 325 MG TAB PO PRN (06:05)
[2017-03-08 06:40] LABS: BUN/CREATININE RATIO 15.7 (10-20); CALCIUM 7.9 mg/dl (8.5-10.1); CREATININE 1.3 mg/dl (0.60-1.20); POTASSIUM 3.6 mmol/L (3.5-5.1)
[2017-03-08 06:43] LABS: ALB/GLOB RATIO 0.5 (0.9-2)
[2017-03-08 07:31] LABS: HEMATOCRIT 26.3 % (37-47); MEAN CELL VOLUME 88.3 fL (80-100); MEAN CORPUSCULAR HEMOGLOBIN 29.2 pg (25-34); MEAN CORPUSCULAR HGB CONC 33.1 g/dl (32-36); MEAN PLATELET VOLUME 10.8 fL (7.4-10.4); PLATELET COUNT 401 K/uL (130-400); RED BLOOD COUNT 2.98 M/uL (4.2-5.4); WHITE BLOOD COUNT 42.83 K/uL (4.8-10.8)
[2017-03-08 07:41] VITALS: BP 88/59; PULSE 90; TEMP 36.7; O2SAT 98
[2017-03-08 11:06] LABS: ANISOCYTOSIS PRESENT; BASO ABS # 0.34 K/uL (0-0.2); BASOPHIL % 0.8 %; ECHINOCYTES 2+; LYMPH ABS # 2.18 K/uL (1.2-3.4); LYMPHOCYTE % 5.1 %; META ABS # 3.26 K/uL (0-0); METAMYELOCYTE % 7.6 %; MYELOCYTE % 7.6 %; NEUTROPHILS % 76.4 %
[2017-03-08 11:07] LABS: COMPLETE YES
--- NOTE | 2017-03-08 13:05 | Palliative Care Progress Note ---
Palliative Care Progress Note Date of Service Mar 08, 2017. Subjective Pt evaluation today including: conversation w/ family (daughter, Mely), chart review, conversation w/ business risk consultant Patient's daughter called me back today. We discussed her mother's condition and plan of care at this time. We talked about goals of care and I relayed the conversation that patient and I had about her possible stopping chemo and pursuing hospice. Mely said she would support her mother's decision either way , but she wanted the oncologist to have a conversation with her mother about this. I informed Dr. Mas and he will contact Dr. Garcia. Mely stated that the patient only has 29 hours of caregiver-time in the home per week. She does not have 24/hr care, which she needs in order to go home. So a stay at a SNF might be necessary and from there with can apply for MA and stay at facility or wait for waiver application to go through and get caregivers in the home. I updated disease case manager. Will follow up.
[2017-03-08] MEDS ORDERED: PIPERACILL/TAZOBAC CONSULT ACTIVE PRN (14:15)
[2017-03-08 15:57] VITALS: BP 104/73; PULSE 107; TEMP 36.4; O2SAT 98
--- NOTE | 2017-03-08 15:58 | Progress Note ---
Subjective Date of Service: Mar 08, 2017. Subjective Pt evaluation today including: conversation w/ patient, conversation w/ family , physical exam, chart review, lab review, review of studies, conversation w/ relationship consultant, review of inpatient medication list Resting comfortably in bed Oriented to name and place Family meeting today, ques answered Review of Systems Constitutional: + weakness, + fatigue, No fever, No chills, No sweats, No weight loss ENT: No hearing loss, No unusual epistaxis, No nasal symptoms, No sore throat Respiratory: No cough, No sputum, No wheezing, No shortness of breath Cardiac: No chest pain, No orthopnea, No PND, No edema, No claudication Abdomen: No pain, No nausea, No vomiting, No diarrhea, No constipation Musculoskeletal: No joint pain, No muscle pain, No swelling, No calf pain Female : No dysuria, No urinary frequency, No hematuria, No incontinence Neurologic: No memory loss, No paralysis, No weakness, No numbness/tingling Psychiatric: No depression symptoms, No anhedonism, No anxiety, No insomnia Skin: No rash, No itch Objective Vital Signs Date Time Temp Pulse Resp B/P (MAP) Pulse Ox O2 Delivery O2 Flow Rate FiO2 03/08/17 08:00 Room Air 03/08/17 07:41 36.7 90 16 88/59 (69) 98 Room Air 03/08/17 04:08 36.8 90 18 113/76 (88) 100 Room Air 03/08/17 00:00 Room Air 03/07/17 23:05 36.4 94 20 116/77 (90) 100 Room Air 03/07/17 19:48 36.7 108 18 102/65 (77) 91 Room Air 03/07/17 16:00 Room Air Physical Exam General Appearance: WD/WN, no apparent distress Eyes: normal inspection, PERRL, EOMI, sclerae normal Neck: supple, no adenopathy, thyroid normal, no JVD Respiratory/Chest: chest non-tender, lungs clear, normal breath sounds, no respiratory distress Cardiovascular: regular rate, rhythm, no edema, no gallop, no murmur Abdomen: normal bowel sounds, non tender, soft, no organomegaly Neurologic/Psychiatric: no motor/sensory deficits, alert, normal mood/affect Laboratory Results Last 24 Hours Test 03/08/17 05:45 White Blood Count 42.83 K/uL Red Blood Count 2.98 M/uL Hemoglobin 8.7 g/dL Hematocrit 26.3 % Mean Corpuscular Volume 88.3 fL Mean Corpuscular Hemoglobin 29.2 pg Mean Corpuscular Hemoglobin Concent 33.1 g/dl Platelet Count 401 K/uL Mean Platelet Volume 10.8 fL RDW Standard Deviation 77.6 fL RDW Coefficient of Variation 26.4 % Nucleated RBC Absolute Count (auto) 0.13 K/uL Neutrophils % (Manual) 76.4 % Lymphocytes % (Manual) 5.1 % Monocytes % (Manual) 1.7 % Basophils % (Manual) 0.8 % Metamyelocytes % 7.6 % Myelocytes % 7.6 % Promyelocytes % 0.8 % Nucleated Red Blood Cells % 0.3 % Neutrophils # (Manual) 32.72 K/uL Total Absolute Neutrophils 32.72 K/uL Lymphocytes # (Manual) 2.18 K/uL Total Absolute Lymphocytes 2.18 K/uL Monocytes # (Manual) 0.73 K/uL Basophils # (Manual) 0.34 K/uL Metamyelocytes # 3.26 K/uL Myelocytes # 3.26 K/uL Promyelocytes # 0.34 K/uL Blood Smear Review Anisocytosis PRESENT Echinocytes 2+ Sodium Level 140 mmol/L Potassium Level 3.6 mmol/L Chloride Level 108 mmol/L Carbon Dioxide Level 23 mmol/L Anion Gap 9.0 mmol/L Blood Urea Nitrogen 20 mg/dl Creatinine 1.30 mg/dl Est Creatinine Clear Calc Drug Dose 26.8 ml/min Estimated GFR () 44.6 Estimated GFR (Non- 38.4 BUN/Creatinine Ratio 15.7 Random Glucose 115 mg/dl Calcium Level 7.9 mg/dl Total Bilirubin 1.4 mg/dl Aspartate Amino Transf (AST/SGOT) 24 U/L Alanine Aminotransferase (ALT/SGPT) 23 U/L Alkaline Phosphatase 331 U/L Total Protein 5.6 gm/dl Albumin 1.8 gm/dl Globulin 3.8 gm/dl Albumin/Globulin Ratio 0.5 Assessment and Plan (1) DVT (deep venous thrombosis) Assessment & Plan: On treatment dose Lovenox with decreasing hemoglobin. Hg 8.7 today, improving from yesterday No pain in affected leg, swelling resolved (2) Shortness of breath Assessment & Plan: Resolved Patient has presumed pulmonary embolism based upon her pancreatic cancer with extensive DVT. VQ scan or CAT scan would not change the need for anticoagulation. No worsening sob noted (3) Liver metastasis (4) Pancreatic cancer metastasized to liver Assessment & Plan: Spoke with daughter at length No obvious source of infection, daughter not agreeable for LP Pancx neg at this time Worsening leukocytosis, cont zosyn 3.375 mg IV q 6 hrs til today Will need f/u with onc as OP Likely poor candidate for ongoing chemo Palliative care consulted, appreciate recs Awaiting placement at this time Discharge planning: home (patient wants to go home when appropriate)
[2017-03-08] MEDS: ENOXAPARIN 60 MG/0.6 ML SYR SQ SCH (18:10)
[2017-03-08 19:40] VITALS: BP 136/58; PULSE 99; TEMP 36.8; O2SAT 97
[2017-03-09] VITALS (21 sets, daily range): BP systolic 93–147; BP diastolic 61–96; PULSE 92–106; TEMP 36.2–37.6; O2SAT 93–100
[2017-03-09] MEDS: TEMAZEPAM 7.5 MG CAP PO PRN (00:03)
[2017-03-09 08:20] LABS: HEMATOCRIT 20.8 % (37-47); MEAN CELL VOLUME 89.7 fL (80-100); MEAN CORPUSCULAR HEMOGLOBIN 29.3 pg (25-34); MEAN CORPUSCULAR HGB CONC 32.7 g/dl (32-36); MEAN PLATELET VOLUME 9.1 fL (7.4-10.4); PLATELET COUNT 368 K/uL (130-400); RED BLOOD COUNT 2.32 M/uL (4.2-5.4); WHITE BLOOD COUNT 39.93 K/uL (4.8-10.8)
[2017-03-09 08:35] LABS: ANISOCYTOSIS PRESENT; COMPLETE YES; META ABS # 0.68 K/uL (0-0); METAMYELOCYTE % 1.7 %; MYELOCYTE % 3.4 %; NEUTROPHILS % 83.7 %; OVALOCYTES 1+; POLYCHROMASIA 1+
[2017-03-09 08:39] LABS: BUN/CREATININE RATIO 19.2 (10-20); CALCIUM 7.8 mg/dl (8.5-10.1); CREATININE 1.2 mg/dl (0.60-1.20); POTASSIUM 3.7 mmol/L (3.5-5.1)
[2017-03-09 08:43] LABS: ALB/GLOB RATIO 0.4 (0.9-2)
--- NOTE | 2017-03-09 15:33 | Progress Note ---
Subjective Date of Service: Mar 09, 2017. Subjective Pt evaluation today including: conversation w/ patient, physical exam, chart review, lab review, review of studies, review of inpatient medication list No complaints at this time NO acute events overnight Review of Systems Constitutional: No fever, No chills, No sweats, No weight loss, No weakness Eyes: No worsening of vision, No eye pain, No redness, No discharge ENT: No hearing loss, No unusual epistaxis, No nasal symptoms Respiratory: No cough, No sputum, No wheezing, No shortness of breath, No dyspnea on exertion Cardiac: No chest pain, No orthopnea, No PND, No edema Abdomen: No pain, No nausea, No vomiting, No diarrhea Musculoskeletal: No joint pain, No muscle pain, No swelling, No calf pain Female : No dysuria, No urinary frequency, No hematuria, No incontinence Neurologic: No memory loss, No paralysis, No weakness, No numbness/tingling Psychiatric: No depression symptoms, No anhedonism, No anxiety, No insomnia Endo: No fatigue, No excessive thirst Skin: No rash, No itch Objective Vital Signs Date Time Temp Pulse Resp B/P (MAP) Pulse Ox O2 Delivery O2 Flow Rate FiO2 03/09/17 15:18 36.8 103 18 110/76 99 03/09/17 15:00 96 Room Air 03/09/17 14:47 36.6 101 18 109/76 03/09/17 14:45 36.6 101 18 109/76 03/09/17 14:30 36.7 99 18 110/61 99 03/09/17 14:15 36.7 104 20 105/68 03/09/17 10:56 36.5 92 16 104/69 (81) 98 Room Air 03/09/17 08:30 97 Room Air 03/09/17 07:40 36.9 92 17 109/74 (86) 94 Room Air 03/09/17 04:18 37.0 93 20 115/77 (90) 97 Room Air 03/09/17 00:27 36.5 106 20 93/61 (72) 100 Room Air 03/09/17 00:15 Room Air 03/08/17 19:40 36.8 99 18 136/58 (84) 97 Room Air 03/08/17 16:00 Room Air 03/08/17 15:57 36.4 107 16 104/73 (83) 98 Room Air Physical Exam General Appearance: WD/WN, no apparent distress Eyes: normal inspection, PERRL, EOMI, sclerae normal ENT: normal ENT inspection, hearing grossly normal, TMs normal, pharynx normal Neck: supple, no adenopathy, thyroid normal, no JVD Respiratory/Chest: chest non-tender, lungs clear, normal breath sounds, no respiratory distress Cardiovascular: regular rate, rhythm, no edema, no gallop, no JVD Abdomen: normal bowel sounds, non tender, soft Neurologic/Psychiatric: no motor/sensory deficits, alert, normal mood/affect Laboratory Results Last 24 Hours Test 03/09/17 07:43 03/09/17 09:58 White Blood Count 39.93 K/uL Red Blood Count 2.32 M/uL Hemoglobin 6.8 g/dL 6.9 g/dL Hematocrit 20.8 % 21.0 % Mean Corpuscular Volume 89.7 fL Mean Corpuscular Hemoglobin 29.3 pg Mean Corpuscular Hemoglobin Concent 32.7 g/dl Platelet Count 368 K/uL Mean Platelet Volume 9.1 fL RDW Standard Deviation 81.8 fL RDW Coefficient of Variation 27.3 % Nucleated RBC Absolute Count (auto) 0.07 K/uL Neutrophils % (Manual) 83.7 % Lymphocytes % (Manual) 6.0 % Monocytes % (Manual) 5.2 % Metamyelocytes % 1.7 % Myelocytes % 3.4 % Nucleated Red Blood Cells % 0.2 % Neutrophils # (Manual) 33.42 K/uL Total Absolute Neutrophils 33.42 K/uL Lymphocytes # (Manual) 2.40 K/uL Total Absolute Lymphocytes 2.40 K/uL Monocytes # (Manual) 2.08 K/uL Metamyelocytes # 0.68 K/uL Myelocytes # 1.36 K/uL Polychromasia 1+ Anisocytosis PRESENT Ovalocytes 1+ Sodium Level 140 mmol/L Potassium Level 3.7 mmol/L Chloride Level 108 mmol/L Carbon Dioxide Level 23 mmol/L Anion Gap 9.0 mmol/L Blood Urea Nitrogen 23 mg/dl Creatinine 1.20 mg/dl Est Creatinine Clear Calc Drug Dose 29.1 ml/min Estimated GFR () 49.1 Estimated GFR (Non- 42.4 BUN/Creatinine Ratio 19.2 Random Glucose 139 mg/dl Calcium Level 7.8 mg/dl Total Bilirubin 1.0 mg/dl Aspartate Amino Transf (AST/SGOT) 18 U/L Alanine Aminotransferase (ALT/SGPT) 18 U/L Alkaline Phosphatase 261 U/L Total Protein 4.9 gm/dl Albumin 1.5 gm/dl Globulin 3.4 gm/dl Albumin/Globulin Ratio 0.4 Assessment and Plan (1) DVT (deep venous thrombosis) Assessment & Plan: On treatment dose Lovenox with decreasing hemoglobin. Hg 6.8 today No symptoms, transfused 2 units PRBCs on 03/09 No pain in affected leg, swelling resolved (2) Shortness of breath Assessment & Plan: Resolved Patient has presumed pulmonary embolism based upon her pancreatic cancer with extensive DVT. VQ scan or CAT scan would not change the need for anticoagulation. No worsening sob noted (3) Liver metastasis (4) Pancreatic cancer metastasized to liver Assessment & Plan: Spoke with daughter at length No obvious source of infection, daughter not agreeable for LP Pancx neg at this time Leukocytosis improving Will need f/u with onc as OP Likely poor candidate for ongoing chemo Palliative care consulted, appreciate recs Awaiting placement at this time Discharge planning: home (patient wants to go home when appropriate)
[2017-03-09] MEDS: ENOXAPARIN 60 MG/0.6 ML SYR SQ SCH (18:56)
[2017-03-09 23:55] LABS: HEMATOCRIT 34.2 % (37-47)
[2017-03-10] VITALS (7 sets, daily range): BP systolic 114–143; BP diastolic 77–96; PULSE 92–113; TEMP 36.6–37; O2SAT 94–99
[2017-03-10 06:25] LABS: HEMATOCRIT 31.6 % (37-47); MEAN CELL VOLUME 86.6 fL (80-100); MEAN CORPUSCULAR HEMOGLOBIN 29.3 pg (25-34); MEAN CORPUSCULAR HGB CONC 33.9 g/dl (32-36); MEAN PLATELET VOLUME 10.3 fL (7.4-10.4); PLATELET COUNT 291 K/uL (130-400); RED BLOOD COUNT 3.65 M/uL (4.2-5.4); WHITE BLOOD COUNT 43.32 K/uL (4.8-10.8)
[2017-03-10 06:39] LABS: BUN/CREATININE RATIO 24.1 (10-20); CALCIUM 7.9 mg/dl (8.5-10.1); CREATININE 0.98 mg/dl (0.60-1.20); POTASSIUM 3.6 mmol/L (3.5-5.1)
[2017-03-10 06:46] LABS: ANISOCYTOSIS PRESENT; COMPLETE YES; LYMPHOCYTE % 5.3 %; META ABS # 1.13 K/uL (0-0); METAMYELOCYTE % 2.6 %; NEUTROPHILS % 85.1 %; OVALOCYTES 1+; POIKILOCYTOSIS PRESENT
[2017-03-10 06:57] LABS: ALB/GLOB RATIO 0.5 (0.9-2)
--- NOTE | 2017-03-10 14:17 | Progress Note ---
Subjective Date of Service: Mar 10, 2017. Subjective Pt evaluation today including: conversation w/ patient, physical exam, chart review, lab review, review of studies, review of inpatient medication list Pt resting comfortably in bed No distress noted No complaints No acute events overnight Review of Systems Constitutional: + weakness, No fever, No chills, No sweats, No weight loss ENT: No hearing loss, No unusual epistaxis, No nasal symptoms, No sore throat Respiratory: No cough, No sputum, No wheezing, No shortness of breath, No dyspnea on exertion Cardiac: No chest pain, No orthopnea, No PND, No edema, No claudication Abdomen: No pain, No nausea, No vomiting, No diarrhea, No constipation Musculoskeletal: No joint pain, No muscle pain, No swelling, No calf pain Female : No dysuria, No urinary frequency, No hematuria, No incontinence Neurologic: No memory loss, No paralysis, No weakness, No numbness/tingling Objective Vital Signs Date Time Temp Pulse Resp B/P (MAP) Pulse Ox O2 Delivery O2 Flow Rate FiO2 03/10/17 11:14 36.7 92 16 143/90 (107) 98 Room Air 03/10/17 08:30 98 Room Air 03/10/17 07:13 36.8 93 16 125/85 (98) 98 Room Air 03/10/17 04:11 37.0 98 18 136/85 (102) 94 Room Air 03/10/17 00:00 Room Air 03/09/17 23:46 37.3 103 20 143/84 (103) 94 Room Air 03/09/17 21:00 37.5 99 17 121/82 99 03/09/17 20:00 37.6 97 18 147/96 95 03/09/17 19:30 37.4 95 18 127/77 93 03/09/17 19:00 36.7 104 20 132/80 96 03/09/17 18:45 36.3 105 18 145/80 98 03/09/17 18:26 36.2 99 18 138/81 03/09/17 17:45 36.8 97 20 131/82 96 03/09/17 16:45 36.7 103 20 134/82 98 03/09/17 15:50 36.8 103 18 114/75 98 03/09/17 15:18 36.8 103 18 110/76 99 03/09/17 15:00 96 Room Air 03/09/17 14:47 36.6 101 18 109/76 03/09/17 14:45 36.6 101 18 109/76 03/09/17 14:30 36.7 99 18 110/61 99 03/09/17 14:15 36.7 104 20 105/68 Physical Exam General Appearance: WD/WN, no apparent distress Eyes: normal inspection, PERRL, EOMI, sclerae normal Neck: supple, no adenopathy, thyroid normal, no JVD Respiratory/Chest: chest non-tender, lungs clear, normal breath sounds, no respiratory distress, no accessory muscle use Cardiovascular: regular rate, rhythm, no edema, no gallop, no JVD, no murmur Abdomen: normal bowel sounds, non tender, soft, no organomegaly Extremities: normal range of motion, non-tender, normal inspection, no pedal edema Neurologic/Psychiatric: no motor/sensory deficits, alert, normal mood/affect, + disoriented Laboratory Results Last 24 Hours Test 03/09/17 23:02 03/10/17 05:49 03/10/17 11:17 Hemoglobin 11.6 g/dL 10.7 g/dL Hematocrit 34.2 % 31.6 % White Blood Count 43.32 K/uL Red Blood Count 3.65 M/uL Mean Corpuscular Volume 86.6 fL Mean Corpuscular Hemoglobin 29.3 pg Mean Corpuscular Hemoglobin Concent 33.9 g/dl Platelet Count 291 K/uL Mean Platelet Volume 10.3 fL RDW Standard Deviation 54.5 fL RDW Coefficient of Variation 20.8 % Nucleated RBC Absolute Count (auto) 0.07 K/uL Neutrophils % (Manual) 85.1 % Lymphocytes % (Manual) 5.3 % Monocytes % (Manual) 7.0 % Metamyelocytes % 2.6 % Nucleated Red Blood Cells % 0.2 % Neutrophils # (Manual) 36.87 K/uL Total Absolute Neutrophils 36.87 K/uL Lymphocytes # (Manual) 2.30 K/uL Total Absolute Lymphocytes 2.30 K/uL Monocytes # (Manual) 3.03 K/uL Metamyelocytes # 1.13 K/uL Poikilocytosis PRESENT Anisocytosis PRESENT Ovalocytes 1+ Sodium Level 139 mmol/L Potassium Level 3.6 mmol/L Chloride Level 110 mmol/L Carbon Dioxide Level 20 mmol/L Anion Gap 9.0 mmol/L Blood Urea Nitrogen 24 mg/dl Creatinine 0.98 mg/dl Est Creatinine Clear Calc Drug Dose 35.6 ml/min Estimated GFR () 62.7 Estimated GFR (Non- 54.1 BUN/Creatinine Ratio 24.1 Random Glucose 153 mg/dl Calcium Level 7.9 mg/dl Total Bilirubin 1.6 mg/dl Aspartate Amino Transf (AST/SGOT) 17 U/L Alanine Aminotransferase (ALT/SGPT) 15 U/L Alkaline Phosphatase 275 U/L Total Protein 4.8 gm/dl Albumin 1.5 gm/dl Globulin 3.3 gm/dl Albumin/Globulin Ratio 0.5 Bedside Glucose 255 mg/dl Assessment and Plan (1) DVT (deep venous thrombosis) Assessment & Plan: On treatment dose Lovenox with decreasing hemoglobin. Hg 10.7 today No symptoms, transfused 2 units PRBCs on 03/09 No pain in affected leg, swelling resolved (2) Shortness of breath Assessment & Plan: Resolved Patient has presumed pulmonary embolism based upon her pancreatic cancer with extensive DVT. VQ scan or CAT scan would not change the need for anticoagulation. No worsening sob noted (3) Liver metastasis (4) Pancreatic cancer metastasized to liver Assessment & Plan: Spoke with daughter at length No obvious source of infection, daughter not agreeable for LP Pancx neg at this time Leukocytosis worsening Will need f/u with onc as OP Likely poor candidate for ongoing chemo Palliative care consulted, appreciate recs Awaiting placement at this time Discharge planning: home (patient wants to go home when appropriate)
[2017-03-10 15:28] LABS: HEMATOCRIT 33.9 % (37-47)
[2017-03-10] MEDS: ENOXAPARIN 60 MG/0.6 ML SYR SQ SCH (18:09)
[2017-03-11] VITALS (7 sets, daily range): BP systolic 108–134; BP diastolic 70–85; PULSE 71–117; TEMP 36.6–37.5; O2SAT 97–100
[2017-03-11 06:25] LABS: HEMATOCRIT 31.9 % (37-47); MEAN CELL VOLUME 87.9 fL (80-100); MEAN CORPUSCULAR HEMOGLOBIN 30.6 pg (25-34); MEAN CORPUSCULAR HGB CONC 34.8 g/dl (32-36); MEAN PLATELET VOLUME 10.3 fL (7.4-10.4); PLATELET COUNT 277 K/uL (130-400); RED BLOOD COUNT 3.63 M/uL (4.2-5.4); WHITE BLOOD COUNT 38.28 K/uL (4.8-10.8)
[2017-03-11 06:42] LABS: ANISOCYTOSIS PRESENT; BASO ABS # 0.34 K/uL (0-0.2); BASOPHIL % 0.9 %; COMPLETE YES; ECHINOCYTES 1+; LYMPH ABS # 1.68 K/uL (1.2-3.4); LYMPHOCYTE % 4.4 %; MYELOCYTE % 0.9 %; NEUTROPHILS % 86.8 %; OVALOCYTES 1+
[2017-03-11 06:47] LABS: BUN/CREATININE RATIO 24.7 (10-20); CALCIUM 8.1 mg/dl (8.5-10.1); CREATININE 0.99 mg/dl (0.60-1.20); POTASSIUM 3.6 mmol/L (3.5-5.1)
[2017-03-11 06:50] LABS: ALB/GLOB RATIO 0.4 (0.9-2)
--- NOTE | 2017-03-11 15:24 | Progress Note ---
Subjective Date of Service: Mar 11, 2017. Subjective Pt evaluation today including: conversation w/ patient, physical exam, chart review, lab review, review of studies, review of inpatient medication list No complaints No events overnight Review of Systems Constitutional: No fever, No chills, No sweats, No weight loss, No weakness ENT: No hearing loss, No unusual epistaxis, No nasal symptoms, No sore throat Respiratory: No cough, No sputum, No wheezing, No shortness of breath, No dyspnea on exertion Cardiac: No chest pain, No orthopnea, No PND, No edema Abdomen: No pain, No nausea, No vomiting, No diarrhea, No constipation Musculoskeletal: No joint pain, No muscle pain, No swelling, No calf pain Female : No dysuria, No urinary frequency, No hematuria, No incontinence Neurologic: No memory loss, No paralysis, No weakness, No numbness/tingling Psychiatric: No depression symptoms, No anhedonism, No anxiety, No insomnia Endo: No fatigue, No excessive thirst Skin: No rash, No itch Objective Vital Signs Date Time Temp Pulse Resp B/P (MAP) Pulse Ox O2 Delivery O2 Flow Rate FiO2 03/11/17 14:45 37.0 97 16 119/82 (94) 97 Room Air 03/11/17 12:15 36.8 91 16 134/84 (101) 99 03/11/17 07:45 100 Room Air 03/11/17 07:16 36.6 71 18 111/76 (88) 100 Room Air 03/11/17 03:40 37.2 101 16 117/77 (90) 97 Room Air 03/11/17 00:00 Room Air 03/10/17 23:45 36.7 101 18 114/77 (89) 95 Room Air 03/10/17 20:00 Room Air 03/10/17 19:31 36.6 113 18 140/96 (111) 97 Room Air 03/10/17 16:10 Room Air Physical Exam General Appearance: WD/WN, no apparent distress Eyes: normal inspection, PERRL, EOMI, sclerae normal Neck: supple, no adenopathy, thyroid normal, no JVD Respiratory/Chest: chest non-tender, lungs clear, normal breath sounds, no respiratory distress Cardiovascular: regular rate, rhythm, no edema, no gallop, no JVD Abdomen: normal bowel sounds, non tender, soft, no organomegaly Extremities: normal range of motion, non-tender, normal inspection, no pedal edema Neurologic/Psychiatric: no motor/sensory deficits, alert, normal mood/affect, oriented x 3 Laboratory Results Last 24 Hours Test 03/11/17 05:36 White Blood Count 38.28 K/uL Red Blood Count 3.63 M/uL Hemoglobin 11.1 g/dL Hematocrit 31.9 % Mean Corpuscular Volume 87.9 fL Mean Corpuscular Hemoglobin 30.6 pg Mean Corpuscular Hemoglobin Concent 34.8 g/dl Platelet Count 277 K/uL Mean Platelet Volume 10.3 fL RDW Standard Deviation 62.1 fL RDW Coefficient of Variation 21.6 % Neutrophils % (Manual) 86.8 % Lymphocytes % (Manual) 4.4 % Monocytes % (Manual) 7.0 % Basophils % (Manual) 0.9 % Myelocytes % 0.9 % Neutrophils # (Manual) 33.23 K/uL Total Absolute Neutrophils 33.23 K/uL Lymphocytes # (Manual) 1.68 K/uL Total Absolute Lymphocytes 1.68 K/uL Monocytes # (Manual) 2.68 K/uL Basophils # (Manual) 0.34 K/uL Myelocytes # 0.34 K/uL Anisocytosis PRESENT Ovalocytes 1+ Echinocytes 1+ Sodium Level 140 mmol/L Potassium Level 3.6 mmol/L Chloride Level 108 mmol/L Carbon Dioxide Level 23 mmol/L Anion Gap 9.0 mmol/L Blood Urea Nitrogen 25 mg/dl Creatinine 0.99 mg/dl Est Creatinine Clear Calc Drug Dose 35.2 ml/min Estimated GFR () 61.9 Estimated GFR (Non- 53.4 BUN/Creatinine Ratio 24.7 Random Glucose 140 mg/dl Calcium Level 8.1 mg/dl Total Bilirubin 1.6 mg/dl Aspartate Amino Transf (AST/SGOT) 20 U/L Alanine Aminotransferase (ALT/SGPT) 16 U/L Alkaline Phosphatase 293 U/L Total Protein 5.2 gm/dl Albumin 1.4 gm/dl Globulin 3.8 gm/dl Albumin/Globulin Ratio 0.4 Assessment and Plan DVT (deep venous thrombosis) On treatment dose Lovenox Hg 11.1 today No symptoms, transfused 2 units PRBCs on 03/09 No pain in affected leg, swelling resolved Shortness of breath Resolved Patient has presumed pulmonary embolism based upon her pancreatic cancer with extensive DVT. VQ scan or CAT scan would not change the need for anticoagulation. No worsening sob noted Pancreatic cancer metastasized to liver Spoke with daughter at length No obvious source of infection, daughter not agreeable for LP Pancx neg at this time Leukocytosis improving 42-->38, no sign of infection Will need f/u with onc as OP Likely poor candidate for ongoing chemo Palliative care consulted, appreciate recs Awaiting placement at this time Discharge planning: home (patient wants to go home when appropriate) Discharge planning: home (patient wants to go home when appropriate)
[2017-03-11] MEDS: ENOXAPARIN 60 MG/0.6 ML SYR SQ SCH (18:22)
[2017-03-11] MEDS: ACETAMINOPHEN 325 MG TAB PO PRN (20:55)
[2017-03-12 04:01] VITALS: BP 109/71; PULSE 84; TEMP 37; O2SAT 98
[2017-03-12 07:02] LABS: BUN/CREATININE RATIO 24.1 (10-20); CREATININE 0.97 mg/dl (0.60-1.20); POTASSIUM 4.1 mmol/L (3.5-5.1)
[2017-03-12 07:05] LABS: ALB/GLOB RATIO 0.4 (0.9-2)
[2017-03-12 07:11] LABS: HEMATOCRIT 31.3 % (37-47); MEAN CELL VOLUME 89.2 fL (80-100); MEAN CORPUSCULAR HEMOGLOBIN 30.5 pg (25-34); MEAN CORPUSCULAR HGB CONC 34.2 g/dl (32-36); PLATELET COUNT 294 K/uL (130-400); RED BLOOD COUNT 3.51 M/uL (4.2-5.4)
[2017-03-12 07:17] VITALS: BP 117/81; PULSE 91; TEMP 36.9; O2SAT 97
[2017-03-12 07:19] LABS: ANISOCYTOSIS PRESENT; COMPLETE YES; ECHINOCYTES 1+; LYMPH ABS # 0.88 K/uL (1.2-3.4); LYMPHOCYTE % 2.6 %; META ABS # 0.57 K/uL (0-0); METAMYELOCYTE % 1.7 %; MYELOCYTE % 1.7 %; NEUTROPHILS % 88.8 %; OVALOCYTES 1+
[2017-03-12 08:30] VITALS: O2SAT 97
[2017-03-12 11:44] VITALS: BP 106/74; PULSE 98; TEMP 36.9; O2SAT 98
--- NOTE | 2017-03-12 13:15 | Progress Note ---
Subjective Date of Service: Mar 12, 2017. Subjective Pt evaluation today including: conversation w/ patient, conversation w/ family , physical exam, chart review, lab review, review of studies, review of inpatient medication list Pleasant doing okay, eating okay, has bowel movement every day, pain fairly controlled, no pain now No obviousSOB on NC O2, pulse ox is 98% in room air, no wheezing Review of Systems Constitutional: + fatigue, No fever, No chills, No sweats, No weight loss, No weakness, No problem reported Eyes: No worsening of vision, No eye pain, No redness, No discharge, No diplopia ENT: No hearing loss, No unusual epistaxis, No nasal symptoms, No sore throat, No tinnitus, No dental problems, No trouble swallowing Respiratory: No cough, No sputum, No wheezing, No shortness of breath, No dyspnea on exertion, No dyspnea at rest, No hemoptysis Cardiac: No chest pain, No orthopnea, No PND, No edema, No claudication, No palpitations Abdomen: No pain, No nausea, No vomiting, No diarrhea, No constipation Musculoskeletal: No joint pain, No muscle pain, No swelling, No calf pain Female : No dysuria, No urinary frequency, No hematuria, No incontinence, No abnormal vaginal bleeding, No vaginal discharge Neurologic: No memory loss, No paralysis, No weakness, No numbness/tingling, No vertigo, No balance problems Psychiatric: No depression symptoms, No anhedonism, No anxiety, No insomnia, No substance abuse Heme: No abnormal bleeding/bruising, No clotting problems, No swollen lymph nodes, No night sweats Endo: No fatigue, No excessive thirst, No excessive urination Skin: No rash, No itch, No new/changing skin lesions, No color change, No bleeding Objective Vital Signs Date Time Temp Pulse Resp B/P (MAP) Pulse Ox O2 Delivery O2 Flow Rate FiO2 03/12/17 11:44 36.9 98 16 106/74 (85) 98 Room Air 03/12/17 08:30 97 Room Air 03/12/17 07:17 36.9 91 16 117/81 (93) 97 Room Air 03/12/17 04:01 37.0 84 16 109/71 (84) 98 Room Air 03/12/17 01:52 Room Air 03/11/17 23:23 37.5 117 16 108/70 (83) 98 Room Air 03/11/17 19:32 37.3 99 16 125/85 (98) 99 Room Air 03/11/17 16:15 Room Air 03/11/17 14:45 37.0 97 16 119/82 (94) 97 Room Air Physical Exam General Appearance: WD/WN, no apparent distress, + cachetic, + thin, + pertinent finding (frail looking) Eyes: normal inspection, PERRL, EOMI, sclerae normal ENT: normal ENT inspection, hearing grossly normal, pharynx normal Neck: supple, no adenopathy, thyroid normal, no JVD, no carotid bruits, trachea midline Respiratory/Chest: chest non-tender, normal breath sounds, no respiratory distress, no accessory muscle use, + decreased breath sounds Cardiovascular: regular rate, rhythm, no edema, no gallop, no JVD, no murmur Abdomen: normal bowel sounds, non tender, soft, no organomegaly, no pulsatile mass Extremities: normal range of motion, non-tender, normal inspection, no pedal edema, no calf tenderness, normal capillary refill, pelvis stable Neurologic/Psychiatric: hat former II-XII nml as tested, no motor/sensory deficits, alert, normal mood/affect, oriented x 3 Skin: normal color, warm/dry, no rash Lymphatic: no adenopathy Laboratory Results Last 24 Hours Test 03/12/17 06:08 White Blood Count 33.70 K/uL Red Blood Count 3.51 M/uL Hemoglobin 10.7 g/dL Hematocrit 31.3 % Mean Corpuscular Volume 89.2 fL Mean Corpuscular Hemoglobin 30.5 pg Mean Corpuscular Hemoglobin Concent 34.2 g/dl Platelet Count 294 K/uL Mean Platelet Volume 12.0 fL RDW Standard Deviation 67.3 fL RDW Coefficient of Variation 21.9 % Neutrophils % (Manual) 88.8 % Lymphocytes % (Manual) 2.6 % Monocytes % (Manual) 5.2 % Metamyelocytes % 1.7 % Myelocytes % 1.7 % Neutrophils # (Manual) 29.93 K/uL Total Absolute Neutrophils 29.93 K/uL Lymphocytes # (Manual) 0.88 K/uL Total Absolute Lymphocytes 0.88 K/uL Monocytes # (Manual) 1.75 K/uL Metamyelocytes # 0.57 K/uL Myelocytes # 0.57 K/uL Anisocytosis PRESENT Ovalocytes 1+ Echinocytes 1+ Sodium Level 139 mmol/L Potassium Level 4.1 mmol/L Chloride Level 108 mmol/L Carbon Dioxide Level 24 mmol/L Anion Gap 7.0 mmol/L Blood Urea Nitrogen 23 mg/dl Creatinine 0.97 mg/dl Est Creatinine Clear Calc Drug Dose 36.0 ml/min Estimated GFR () 63.5 Estimated GFR (Non- 54.8 BUN/Creatinine Ratio 24.1 Random Glucose 149 mg/dl Calcium Level 8.0 mg/dl Total Bilirubin 1.5 mg/dl Aspartate Amino Transf (AST/SGOT) 17 U/L Alanine Aminotransferase (ALT/SGPT) 17 U/L Alkaline Phosphatase 285 U/L Total Protein 5.0 gm/dl Albumin 1.4 gm/dl Globulin 3.6 gm/dl Albumin/Globulin Ratio 0.4 Assessment and Plan (1) DVT (deep venous thrombosis) (2) Shortness of breath (3) Liver metastasis (4) Pancreatic cancer metastasized to liver 81 yo F with PMHx of metastatic pancreatic cancer to the liver, chronically elevated LFTS, admitted on 03/01/2017 because of increased shortness of breath per the patients daughter and worsening right lower extremity swelling. Per report the patient was as a direct admission from Dr. Salas's office ([facility]) for increased shortness of breath per the patients daughter and worsening right lower extremity swelling. Venous ultrasound confirmed an extensive DVT involving all venous structures in the right lower extremity DVT (deep venous thrombosis), stable On treatment dose Lovenox Hg 11.1 today No symptoms, transfused 2 units PRBCs on 03/09 No pain in affected leg, swelling resolved Possible PE with Shortness of breath Resolved Patient has presumed pulmonary embolism based upon her pancreatic cancer with extensive DVT. VQ scan or CAT scan would not change the need for anticoagulation. No worsening sob noted Pancreatic cancer metastasized to liver: Likely poor candidate for ongoing chemo, Will need f/u with onc as OP Palliative care consulted, appreciate recs Severe leukocytosis, No obvious source of infection, daughter not agreeable for LP Pancx neg at this time Leukocytosis continue improves , no sign of infection Spoke with daughter at length about patient's condition and care plan Possible [place] tomorrow DVT prophylaxis is on Lovenox Patient is do not resuscitation Continued [facility] stay due to: home environment unsafe for pt Discharge planning: nursing home facility
[2017-03-12 15:22] VITALS: BP 114/75; PULSE 94; TEMP 37.1; O2SAT 99
[2017-03-12] MEDS: ENOXAPARIN 60 MG/0.6 ML SYR SQ SCH (18:43)
[2017-03-12 19:37] VITALS: BP 154/97; PULSE 124; TEMP 36.6; O2SAT 98
[2017-03-13 00:17] VITALS: BP 108/67; PULSE 65; TEMP 36.4; O2SAT 96
[2017-03-13 04:00] VITALS: BP 136/78; PULSE 91; TEMP 36.6; O2SAT 94
[2017-03-13 06:34] LABS: HEMATOCRIT 33.1 % (37-47); MEAN CELL VOLUME 89.7 fL (80-100); MEAN CORPUSCULAR HEMOGLOBIN 29.8 pg (25-34); MEAN CORPUSCULAR HGB CONC 33.2 g/dl (32-36); MEAN PLATELET VOLUME 11.3 fL (7.4-10.4); PLATELET COUNT 356 K/uL (130-400); RED BLOOD COUNT 3.69 M/uL (4.2-5.4); WHITE BLOOD COUNT 36.68 K/uL (4.8-10.8)
[2017-03-13 06:35] LABS: ANISOCYTOSIS PRESENT; COMPLETE YES; ECHINOCYTES 1+; LYMPH ABS # 0.62 K/uL (1.2-3.4); LYMPHOCYTE % 1.7 %; OVALOCYTES 1+
[2017-03-13 06:42] LABS: BUN/CREATININE RATIO 24.4 (10-20); CALCIUM 8.2 mg/dl (8.5-10.1); POTASSIUM 3.6 mmol/L (3.5-5.1)
[2017-03-13 06:45] LABS: ALB/GLOB RATIO 0.4 (0.9-2)
[2017-03-13 07:54] VITALS: BP 121/81; PULSE 97; TEMP 36.7; O2SAT 99
[2017-03-13 11:47] VITALS: BP 108/70; PULSE 90; TEMP 36.5; O2SAT 98
[2017-03-13] MEDS ORDERED: LVNIS60 SQ (13:07)
[2017-03-13] MEDS ORDERED: RST75 PO (13:07)
--- NOTE | 2017-03-13 13:08 | Discharge Instructions ---
Discharge Instructions Date of Service Mar 13, 2017. Admission Reason for Admission: Dvt, Sob VTE Date & Time Date of VTE Diagnosis: Mar 01, 2017 Time of VTE Diagnosis: 15:05 Discharge Goals Goal(s): Decrease discomfort, Improve function, Increase independence, Improve disease control, Improve nutritional status, Learn about illness, Diagnostic testing, Therapeutic intervention Activity Recommendations Activity Limitations: resume your previous activity (fall precaution) . Instructions / Follow-Up Instructions / Follow-Up you have acute deep venous thrombosis), and very possible have pulmonary embolism you need to be on Lovenox possible for life, you have Pancreatic cancer metastasized to liver, you need out patietn follow up with Dr. Izquierdo in 1 one, to discuss further care goal , possible for hospice care you have Severe leukocytosis, - you need to follow up with your primary care physician in 1 week, - take medication as instructed, never overdose or any misuse, or take with alcohol, because misuse of medicine may cause organ damage or , call your primary care physician if have questions of medicaitons. - call your primary care physician OR go to local emergency room if has any fever/chill, chest pain, shortness of breathing, nausea/vomiting/abdominal pain , facial droop/slurry speech/local weakness, or if has any questions. - fall precaution - diet as instructed - you need to follow up with your subspecialists - you should understand that it is important to follow up the above instruction , and "not following the above instruction" may cause delayed or missed care of your medical conditions which may cause permanent organ damage and even . Medication Instructions: Your condition is typically treated with an anticoagulant. Anticoagulants will thin your blood to help prevent new clots. * You should take her medication exactly as directed. * Never skip a dose. * Never take a double dose. If you miss a dose, take it as soon as you remember. Call your Primary Care doctor if you experience any of the following: * Swelling or Pain in your leg * Sudden, continuous pain deep in a muscle * Pain that worsens when you are active or when you stand still for a long time * Chest Pain * Sudden Shortness of Breath * Rapid or pounding heart beat * Fainting * Dizziness * Cough with blood or bloody sputum * Sweating more than normal * Bruises * Heavy or uncontrolled bleeding * Blood in your urine, stool or vomit * Black or tarry stools Caring for Your Self at Home: * Avoid sitting, standing or lying down for long periods without moving your legs and feet * When traveling by car, stop to get out and move around at least once every 3 hours * On long airplane, train or bus rides, get up and move around when possible * If you can't get up, wiggle your toes and tighten your calves to keep your blood moving Follow Up: It is important for you to keep your follow up appointments with your medical provider. Current Hospital Diet Patient's current hospital diet: Regular Diet Discharge Diet Recommended Diet: Regular Diet Procedures Procedures Performed: no Pending Studies Studies pending at discharge: no Medical Emergencies . Who to Call and When: Medical Emergencies: If at any time you feel your situation is an emergency, please call 911 immediately. . Non-Emergent Contact Non-Emergency issues call your: Primary Care Provider, Oncologist . . "Provider Documentation" section prepared by Gabino Day. . VTE Core Measure Inpt VTE Proph given/why not?: Enoxaparin (Lovenox)OMAR, T.EKari. Stockbhavani, SCD's
[2017-03-13 13:15] VITALS: BP 108/70; PULSE 90; TEMP 36.5; O2SAT 98
[2017-03-13 14:58] VITALS: BP 110/75; PULSE 102; TEMP 36.6; O2SAT 96
--- NOTE | 2017-03-13 15:14 | Discharge Summary ---
Discharge Summary Date of Service Mar 13, 2017. Discharge Summary Admission Date: Mar 01, 2017 at 17:42 Discharge Date: Mar 13, 2017 Principal Diagnosis: acute deep venous thrombosis), and very possible have pulmonary embolism Problems/Secondary Diagnoses: Pancreatic cancer metastasized to liver, Severe leukocytosis, Procedures: No Consultations: No Medication Reconciliation New Medications: Enoxaparin (Enoxaparin Sodium) 60 Mg/0.6 Ml Inj 50 MG SQ Q24H for 30 Days Temazepam (Temazepam) 7.5 Mg Cap 7.5 MG PO HS PRN for Insomnia for 3 Days, #3 CAP Continued Medications: Latanoprost (Xalatan 0.005% Oph Lashanda) 0.005 % Lashanda 1 DROPS OP HS, #2.5 ML 3 Refills Megestrol Acetate (Megace Oral) 40 Mg/Ml Christi 40 MG PO QAM Naproxen (Aleve) 220 Mg Tab 220 MG PO UD PRN for Pain, TAB Discontinued Medications: Ciprofloxacin (Ciprofloxacin HCl) 500 Mg Tab 500 MG PO BID for 10 Days Finished Rx on 02/28/17 Hctz/Spironolactone 25MG/25MG (Aldactazide 25MG/25MG) 1 Tab Tab 1 TAB PO DAILY, TAB Discharge Exam Doing okay, sitting up in chair, no special complaining, Review of Systems: Constitutional: No fever, No chills, No sweats, No weight loss, No weakness , No fatigue, No problem reported Eyes: No worsening of vision, No eye pain, No redness, No discharge, No diplopia, No problem reported ENT: No hearing loss, No unusual epistaxis, No nasal symptoms, No sore throat, No tinnitus, No dental problems, No trouble swallowing, No problem reported Respiratory: No cough, No sputum, No wheezing, No shortness of breath, No dyspnea on exertion, No dyspnea at rest, No hemoptysis, No problem reported Cardiovascular: No chest pain, No orthopnea, No PND, No edema, No claudication, No palpitations, No problem reported Abdomen: No pain, No nausea, No vomiting, No diarrhea, No constipation, No GI bleeding, No problem reported Musculoskeletal: No joint pain, No muscle pain, No swelling, No calf pain, No problem reported Genitourinary - Female: No dysuria, No urinary frequency, No urinary urgency , No urinary incontinence, No urinary retention, No hematuria, No dysmenorrhea, No menorrhagia, No metrorrhagia, No rash, No vaginal bleeding, No vaginal discharge, No vaginal itching, No vulvodynia, No , No problem reported Neurologic: No memory loss, No paralysis, No weakness, No numbness/tingling , No vertigo, No balance problems, No problem reported Psychiatric: No depression symptoms, No anhedonism, No anxiety, No insomnia , No substance abuse, No problem reported Endocrine: No fatigue, No excessive thirst, No excessive urination, No problem reported Hematologic / Lymphatic: No abnormal bleeding/bruising, No clotting problems , No swollen lymph nodes, No night sweats, No problem reported Integumentary: No rash, No itch, No new/changing skin lesions, No color change, No bleeding, No problem reported Physical Exam: General Appearance: WD/WN, no apparent distress, + cachetic, + pertinent finding Eyes: normal inspection, PERRL, EOMI ENT: normal ENT inspection, hearing grossly normal Neck: supple, no adenopathy, thyroid normal Respiratory/Chest: chest non-tender, + decreased breath sounds Cardiovascular: regular rate, rhythm, no edema, no gallop Abdomen / GI: normal bowel sounds, non tender, soft, no organomegaly, no pulsatile mass Extremities: normal inspection, no calf tenderness, normal capillary refill 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 Per report the patient was as a direct admission from Dr. Salas's office (heme/ onc [facility]) for increased shortness of breath per the patients daughter and worsening right lower extremity swelling. Venous ultrasound confirmed an extensive DVT involving all venous structures in the right lower extremity DVT (deep venous thrombosis), stable On treatment dose Lovenox Hg 11.1 today No symptoms, transfused 2 units PRBCs on 03/09 No pain in affected leg, swelling resolved Possible PE with Shortness of breath Resolved Patient has presumed pulmonary embolism based upon her pancreatic cancer with extensive DVT. VQ scan or CAT scan would not change the need for anticoagulation. No worsening sob noted Pancreatic cancer metastasized to liver: Likely poor candidate for ongoing chemo, Will need f/u with onc as OP Palliative care consulted, appreciate recs -Risk of readmission Severe leukocytosis, No obvious source of infection, daughter not agreeable for LP Pancx neg at this time, sent one blood culture again for in case need to follow-up Leukocytosis continue improves , no sign of infection have Pancreatic cancer metastasized to liver, need out patietn follow up with Dr. Izquiedro in 1 one, to discuss further care goal , possible for hospice care you have Severe leukocytosis, Spoke with daughter at length about patient's condition and care plan discharge to [facility] today DVT prophylaxis is on Lovenox Patient is do not resuscitation Instructions / Follow-Up you have acute deep venous thrombosis), and very possible have pulmonary embolism you need to be on Lovenox possible for life, you have Pancreatic cancer metastasized to liver, you need out patietn follow up with Dr. Izquierdo in 1 one, to discuss further care goal , possible for hospice care you have Severe leukocytosis, - you need to follow up with your primary care physician in 1 week, - take medication as instructed, never overdose or any misuse, or take with alcohol, because misuse of medicine may cause organ damage or , call your primary care physician if have questions of medicaitons. - call your primary care physician OR go to local emergency room if has any fever/chill, chest pain, shortness of breathing, nausea/vomiting/abdominal pain , facial droop/slurry speech/local weakness, or if has any questions. - fall precaution - diet as instructed - you need to follow up with your subspecialists - you should understand that it is important to follow up the above instruction , and "not following the above instruction" may cause delayed or missed care of your medical conditions which may cause permanent organ damage and even . Total Time Spent: Greater than 30 minutes This includes examination of the patient, discharge planning, medication reconciliation, and communication with other providers. Discharge Instructions Please refer to the electronic Patient Visit Report (Discharge Instructions) for additional information. Additional Copies To Isaias Ho MD
== END 2017-03-13 18:15 | DRG 299 ==
LOC: C.ULTR 15:04 → C.2T 17:42 → ENRESERV 03-04 12:51 → C.4E 03-04 13:44
PROVIDERS: ADMIT Family Medicine; ATTEND Hospitalist
DX: I82.491 Acute embolism and thrombosis of other specified deep vein of right lower extremity (principal); I26.99 Other pulmonary embolism without acute cor pulmonale; C25.9 Malignant neoplasm of pancreas, unspecified; C78.7 Secondary malignant neoplasm of liver and intrahepatic bile duct; R64 Cachexia; D72.829 Elevated white blood cell count, unspecified; G47.00 Insomnia, unspecified; Z51.81 Encounter for therapeutic drug level monitoring; Z79.899 Other long term (current) drug therapy; Z66 Do not resuscitate; Z91.81 History of falling; Z86.79 Personal history of other diseases of the circulatory system